=== PATIENT | male | born 2000 | race African-American/Black ===

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

== ENCOUNTER 2022-12-11 09:26 | Emergency (ER) | payer OTHER ==
--- OUTSIDE RECORDS SUMMARY | 2022-12-11 09:31 | XMS REPORT | Continuity of Care Document ---
:2000 Author Organization [facility] t Address [address] [facility] [address] [place] [address] Care Team Providers Name Role Phone RAMEZ DOWNS Primary Care Physician Unavailable Nurse, Octav[facility] Attending Clinician Unavailable Unknown, Attending Attending Clinician Unavailable GARRETT ARDON Attending Clinician Unavailable Garrett Ardon MD Attending Clinician Doctor Unassigned, [place] Attending Clinician Unavailable Margaret Galdamez Attending Clinician MARGARET HAGAN Attending Clinician Unavailable Radiology Attending Clinician Unavailable RADIOLOGY Attending Clinician Unavailable Payers Payer Name Policy Type Policy Number Effective Date Expiration Date S ource Problems Condition Condition Condition Status Onset Resolution Last Treating Co mments Source Name Details Category Date Date Treatment Clinician Date Right knee Right knee Disease Active 2014-08 U nivers pain pain 1- ity of 00:00: [place] [address] [facility] [place] Right knee Right knee Disease Active 2014-08 U nivers pain pain 1 ity of 00:00: [address] Migraines Migraines Disease Active Uni vers 04-12 ity of 00:00: [address] Allergies, Adverse Reactions, Alerts Allergy Allergy Status Severity Reaction(s) Onset Inactive Treating Comm ents Source Name Type Date Date Clinician NO KNOWN Drug Active Univers ALLERGIE Class ity of [facility] Social History Social Habit Start Date Stop Date Quantity Comments Source Exposure to 2022-07-21 2022-07-31 Not sure [facility] SARS-CoV-2 00:00:00 10:45:00 [facility] (event) [place] Tobacco use and 2022-07-25 2022-07-25 Smokeless tobacco Un iversity of exposure 00:00:00 00:00:00 non-user [facility] Tobacco Comment 2022-07-25 2022-07-25 Minor Universit y of 00:00:00 00:00:00 [facility] Sex Assigned At [birth year] Universit y of 00:00:00 00:00:00 [facility] Smoking Status Start Date Stop Date Source Never smoked tobacco [facility] Medications Ordered Filled Start Stop Current Ordering Indication Dosage Frequency Signature Comments Components Source Medication Medication Date Date Medication? Clinician (SIG) Name Name IBUPROFEN Yes Take by [employer] [facility] ORAL 5-02 mouth. ity of 14:04: [address] IBUPROFEN Yes Take by Unive rs ORAL 5-02 mouth. ity of 14:04: [address] IBUPROFEN Yes Take by Unive rs ORAL 5-02 mouth. ity of 14:04: [address] IBUPROFEN Yes Take by Unive rs ORAL 5-02 mouth. ity of 14:04: [address] IBUPROFEN Yes Take by Unive rs ORAL 5-02 mouth. ity of 14:04: [address] albuterol Yes Univers (PROVENTIL) - ity of 2.5 mg /3 00:00: [place] mL (0.083 00 Medical %) Branch nebulizer solution albuterol Yes Univers (PROVENTIL) 9 ity of 2.5 mg /3 00:00: [place] mL (0.083 00 Medical %) Branch nebulizer solution albuterol Yes Univers (PROVENTIL) 917 ity of 2.5 mg /3 00:00: [place] mL (0.083 00 Medical %) Branch nebulizer solution albuterol Yes Univers (PROVENTIL) 917 ity of 2.5 mg /3 00:00: [place] mL (0.083 00 Medical %) Branch nebulizer solution albuterol Yes Univers (PROVENTIL) 9-17 ity of 2.5 mg /3 00:00: [place] mL (0.083 00 Medical %) Branch nebulizer solution rizatriptan Yes [id number] 10mg Take 1 Tab Univers (MAXALT) 10 8-31 by mouth ity of mg tablet 00:00: as needed Kevin as 00 for Medical Migraine. Branch May repeat in 2 hours if needed amitriptyli Yes [id number] 10mg Take 1 Tab Univers ne (ELAVIL) 8-31 by mouth ity of 10 mg 00:00: at [place] tablet 00 bedtime. Medical Branch rizatriptan Yes [id number] 10mg Take 1 Tab Univers (MAXALT) 10 8-31 by mouth ity of mg tablet 00:00: as needed Kevin as 00 for Medical Migraine. Branch May repeat in 2 hours if needed amitriptyli Yes [id number] 10mg Take 1 Tab Univers ne (ELAVIL) 8-31 by mouth ity of 10 mg 00:00: at [place] tablet 00 bedtime. Medical Branch rizatriptan Yes [id number] 10mg Take 1 Tab Univers (MAXALT) 10 8-31 by mouth ity of mg tablet 00:00: as needed Kevin as 00 for Medical Migraine. Branch May repeat in 2 hours if needed amitriptyli Yes [id number] 10mg Take 1 Tab Univers ne (ELAVIL) 8-31 by mouth ity of 10 mg 00:00: at [place] tablet 00 bedtime. Medical Branch rizatriptan Yes [id number] 10mg Take 1 Tab Univers (MAXALT) 10 8-31 by mouth ity of mg tablet 00:00: as needed Kevin as 00 for Medical Migraine. Branch May repeat in 2 hours if needed amitriptyli Yes [id number] 10mg Take 1 Tab Univers ne (ELAVIL) 8-31 by mouth ity of 10 mg 00:00: at [place] tablet 00 bedtime. Medical Branch rizatriptan Yes [id number] 10mg Take 1 Tab Univers (MAXALT) 10 8-31 by mouth ity of mg tablet 00:00: as needed Kevin as 00 for Medical Migraine. Branch May repeat in 2 hours if needed amitriptyli 2015-0 Yes [id number] 10mg Take 1 Tab Univers ne (ELAVIL) 8-31 by mouth ity of 10 mg 00:00: at [facility] 00 bedtime. Medical [place] Immunizations Ordered Filled Immunization Date Status Comments [facility] e Immunization Name Name TDAP 2022-07-25 Completed University 00:00:00 [facility] TDAP 2022-07-25 Completed University 00:00:00 [facility] DTAP 2005-05-18 Completed University 00:00:00 [facility] HEPATITIS A 2005-05-18 Completed [facility] 00:00:00 [facility] Vital Signs Vital Name Observation Time Observation Value Comments Source Systolic blood 2022-07-31 16:58:00 113 mm[Hg] Univer sity of pressure [facility] Diastolic blood 2022-07-31 16:58:00 78 mm[Hg] Unive rsity of [facility] Heart rate 2022-07-31 16:58:00 80 /min [facility] Body temperature 2022-07-31 16:58:00 36.67 Adrianna [facility] Respiratory rate 2022-07-31 16:58:00 16 /min [facility] Body height 2022-07-31 16:58:00 185.4 cm [facility] Body weight 2022-07-31 16:58:00 61.689 kg [facility] BMI 2022-07-31 16:58:00 17.94 kg/m2 [facility] Oxygen saturation in 2022-07-31 16:58:00 98 /min [facility] Arterial blood by [facility] Pulse oximetry Branch Systolic blood 2022-07-25 21:36:00 126 mm[Hg] Univer sity of pressure [facility] Diastolic blood 2022-07-25 21:36:00 83 mm[Hg] Unive rsity of [facility] Heart rate 2022-07-25 21:36:00 70 /min [facility] Body temperature 2022-07-25 21:36:00 36.78 [facility]anna [facility] rate 2022-07-25 21:36:00 16 /min [facility] Body height 2022-07-25 21:36:00 185.4 cm [facility] Body weight 2022-07-25 21:36:00 63.64 kg [facility] BMI 2022-07-25 21:36:00 18.51 kg/m2 [facility] Oxygen saturation in 2022-07-25 21:36:00 98 /min [facility] Arterial blood by [facility] Pulse oximetry Branch Systolic blood 2021-05-31 19:06:00 101 mm[Hg] Univer sity of [facility] Diastolic blood 2021-05-31 19:06:00 59 mm[facility]Hg[facility] 2021-05-31 19:06:00 64.156 kg [facility] Procedures Procedure Date / Time Performed Performing Clinician Sour e TDAP VACCINE, >11 YRS, 2022-07-25 21:41:01 Garrett Ardon [facility] ASSIGNMENT OF BENEFITS 2022-07-25 21:22:38 Doctor Unassigned, No [facility] Encounters Start End Encounter Admission Attending Care Care Encounter Source Date/Time Date/Time Type Type Clinicians Facility Department ID 2022-07-31 2022-07-31 Nurse NurseOctaviano [facility] [id number] [facility] 11:00:00 11:20:00 Visit Unknown, Attending [facility] [id number] [facility] [id number] Kevin as DELTA?BLEA [id number] [address] MEDICAL OFFICE BUILDING 2022-07-31 2022-07-31 Outpatient Eufemia ARDON [facility] [id number] Univers 11:00:00 11:00:00 [facility] 2022-07-25 2022-07-25 Outpatient Eufemia ARDON [facility] [id number] Univers 15:20:00 16:04:46 GARRETT [facility] 2022-07-25 2022-07-25 Urgent Garrett Ardon [facility] [id number] Univers 15:20:00 16:04:46 Care Unknown, Attending HEALTH [id number] ity of [place] [id number] Kevin as DELTA?BLEA [phone] Ne chaz [address] [address] [place] MEDICAL OFFICE [facility] 2022-07-25 2022-07-25 Orders Doctor ANGELA [id number] Univers 00:00:00 00:00:00 Only Unassigned, OMKAR [id number] ity of [place] [facility] [id number] Kevin as [phone] [facility] [address] [place] 2022-07-25 2022-07-25 Costa Ardon [facility] [id number] Univers 00:00:00 00:00:00 [facility] [id number] [facility] y of [place] [id number] Kevin as DELTA?BLEA [id number] [facility] [address] [facility] OFFICE [facility] 2021-05-31 2021-05-31 [facility] 1.2.840.114 [id number] Univers 13:55:56 14:25:56 Visit [facility] [id number] it y of [place] [id number] Kevin as Delta?Blea [id number] [facility] [address] [facility] Office [facility] 2021-05-31 2021-05-31 Outpatient R DANYA [facility] [id number] Univers 14:15:00 14:15:00 MARGARET ity of [facility] 2021-05-26 2021-05-26 Hospital Radiology [facility] [id number] Univers 17:00:00 23:59:00 Encounter [place] [id number] ity of [id number] [place] [id number] [facility] 807 [place] 2021-05-26 2021-05-26 Outpatient R RADIOLOGY [facility] [id number] Univers 00:00:00 00:00:00 ity of [facility] 2021-05-26 2021-05-26 Orders Doctor ANGELA [id number] Univers 00:00:00 00:00:00 Only Unassigned, OMKAR [id number] ity of [place] [facility] [id number] Kevin as [id number] [facility] 009 Branch Results This patient has no known results.
[2022-12-11 10:11] LABS: Urine Bacteria None Seen /HPF (<20); Urine Bilirubin NEGATIVE (Negative); Urine Blood Negative (Negative); Urine Clarity Clear (Clear); Urine Color Light-Yellow (Yellow); Urine Glucose NEGATIVE (Negative); Urine Mucus Slight /HPF (None Seen); Urine Protein TRACE (Negative); Urine RBC <5 /HPF (None Seen); Urine Urobilinogen Normal (Normal); Urine pH 5.5 (5.0-7.0)
--- NOTE | 2022-12-11 11:58 | RAD REPORT ---
EXAM DESCRIPTION: US - Scrotum Testicles - 12/11/2022 11:51 am CLINICAL HISTORY: PAIN COMPARISON: Hip Bilateral With Pelvis dated 05/18/2017 FINDINGS: The right testicle measures 3.2 x 2.4 x 2.3 cm with volume of 9.8 cc. No intratesticular m asses or evidence of testicular torsion. The left testicle measures 3.7 x 2.7 x 1.9 cm with volume of 10.1 cc .. No intratesticular masses or evidence of testicular torsion. Both epididymides are normal in size and appearance. No pathologic fluid collections. IMPRESSION: Bilateral testicular blood flow is present. No acute findings.
--- NOTE | 2022-12-11 12:07 | EDPHYS ---
Physician Documentation [facility] Name: Dae Watters Jr Age: 22 yrs Sex: Male : 2000 Arrival Date: 12/11/2022 Time: 09:26 Bed 5 Private MD: ED Physician Agapito Haque HPI: 12/11 10:23 This 22 yrs old Black Male presents to ER via Ambulatory with complaints of STD kb Exposure. 10:23 The patient presents with scrotal pain, irritation that is intermittent. Onset: The kb symptoms/episode began/occurred this morning. Modifying factors: The symptoms are alleviated by nothing, the symptoms are aggravated by nothing. Associated signs and symptoms: The patient has no apparent associated signs or symptoms. Severity of symptoms: At their worst the symptoms were mild, in the emergency department the symptoms have resolved. The patient has not experienced similar symptoms in the past. The patient has not recently seen a physician. Historical: - Allergies: 09:50 No Known Drug Allergies; ll1 - PMHx: 09:50 Asthma; ll1 - PSHx: 09:50 Appendectomy; ll1 - Immunization history:: Adult Immunizations up to date, Client reports receiving the German \T\ German single-dose vaccine. - Social history:: Smoking status: Reported history of juuling and/or vaping. ROS: 10:22 Constitutional: Negative for fever, chills, and weight loss. kb 10:22 : Positive for intermittent irritation to testicles. 10:22 All other systems are negative. Exam: 10:22 Constitutional: This is a well developed, well nourished patient who is awake, alert, kb and in no acute distress. Head/Face: Normocephalic, atraumatic. ENT: Moist Mucous membranes Cardiovascular: Regular rate and rhythm with a normal S1 and S2. No gallops, murmurs, or rubs. No pulse deficits. Respiratory: Respirations even and unlabored. No increased work of breathing. Talking in full sentences Abdomen/GI: Soft, non-tender. No distention Male : Normal genitalia with no discharge or lesions. Skin: Warm, dry with normal turgor. Normal color. MS/ Extremity: Pulses equal, no cyanosis. Neurovascular intact. Full, normal range of motion. Neuro: Awake and alert, GCS 15, oriented to person, place, time, and situation. Moves all extremities. Normal gait. Vital Signs: 09:51 BP 122 / 73; Pulse 92; Resp 16; Temp 98.3; Pulse Ox 100% ; Weight 63.5 kg; Height 6 ft. ll1 1 in. ; Pain 0/10; 11:49 BP 121 / 64; Pulse 55; Resp 16; Pulse Ox 98% on R/A; Pain 0/10; cm9 12:23 BP 118 / 66; Pulse 61; Resp 16; Pulse Ox 99% on R/A; Pain 0/10; ld1 09:51 Body Mass Index 18.47 (63.50 kg, 185.42 cm) ll1 09:51 Pain Scale: Adult ll1 11:49 Pain Scale: Adult cm9 12:23 Pain Scale: Adult ld1 MDM: 09:51 Patient medically screened. kb 10:23 Data reviewed: vital signs, nurses notes. kb 10:23 Differential diagnosis: UTI, torsion, cellulitis, abscess. kb 12:06 Counseling: I had a detailed discussion with the patient and/or guardian regarding: the kb historical points, exam findings, and any diagnostic results supporting the discharge/admit diagnosis, lab results, radiology results, the need for outpatient follow up, a family practitioner, to return to the emergency department if symptoms worsen or persist or if there are any questions or concerns that arise at home. 12/11 09:53 Order name: Urinalysis w/ reflexes; Complete Time: 10:11 kb 12/11 10:15 Order name: GC (Dieudonne/Chl) Probe URINE EDMS 12/11 10:16 Order name: US Scrotum Testicles; Complete Time: 12:05 kb Administered Medications: No medications were administered Disposition: 12:30 Co-signature as Attending Physician, Agapito Haque MD I reviewed the patient's care rn provided by the Advanced Practice Provider and agree with the diagnosis and treatment plan. Disposition Summary: 12/11/22 12:06 Discharge Ordered Location: Home Condition: Stable Diagnosis - Testicular pain, unspecified kb Followup: kb - With: Emergency Department - When: As needed - Reason: Worsening of condition Followup: kb - With: Private Physician - When: 2 - 3 days - Reason: Recheck today's complaints, Continuance of care, Re-evaluation by your physician Discharge Instructions: - Discharge Summary Sheet kb - Testicular Self-Exam, [id number] kb Forms: - Medication Reconciliation Form kb - Thank You Letter kb - Antibiotic Education kb - Prescription Opioid Use kb Signatures: Dispatcher [employer] Laisha Guerrero FNP-C FNP-Agapito Ozuna MD MD rn Kari Golden RN RN ll1
--- NOTE | 2022-12-11 12:07 | ER ---
Nurse's Notes [facility] Name: Dae Watters Jr Age: 22 yrs Sex: Male : 2000 Arrival Date: 12/11/2022 Time: 09:26 Bed 5 Private MD: Diagnosis: Testicular pain, unspecified Presentation: 12/11 09:51 Chief complaint: Patient states: Penile irritation started today. No drainage. No ll1 dysuria. + sexually active. Coronavirus screen: Vaccine status: Patient reports receiving the 1st dose of the Covid vaccine. Client denies travel out of the [place] in the last 14 days. At this time, the client does not indicate any symptoms associated with coronavirus-19. Ebola Screen: Patient denies travel to an Ebola-affected area in the 21 days before illness onset. Initial Sepsis Screen: Does the patient meet any 2 criteria? No. Patient's initial sepsis screen is negative. Does the patient have a suspected source of infection? No. Patient's initial sepsis screen is negative. Risk Assessment: Do you want to hurt yourself or someone else? Patient reports no desire to harm self or others. Onset of symptoms was December 11, 2022. 09:51 Method Of Arrival: Ambulatory ll1 09:51 Acuity: DANIELA 4 ll1 Historical: - Allergies: 09:50 No Known Drug Allergies; ll1 - PMHx: 09:50 Asthma; ll1 - PSHx: 09:50 Appendectomy; ll1 - Immunization history:: Adult Immunizations up to date, Client reports receiving the German \T\ German single-dose vaccine. - Social history:: Smoking status: Reported history of juuling and/or vaping. Screenin:04 [facility] ED Fall Risk Assessment (Adult) History of falling in the last 3 months, cm9 including since admission No falls in past 3 months (0 pts) Confusion or Disorientation No (0 pts) Intoxicated or Sedated No (0 pts) Impaired Gait No (0 pts) Mobility Assist Device Used No (0 pt) Altered Elimination No (0 pt) Score/Fall Risk Level 0 - 2 = Low Risk Maintained a safe environment, Educated pt \T\ family on fall prevention, incl call for assistance when getting out of bed, Assessed \T\ reinforced patient's understanding of fall precautions, Hourly rounding (assess needs \T\ fall precautionary measures) done. Abuse screen: Denies threats or abuse. Nutritional screening: No deficits noted. Tuberculosis screening: No symptoms or risk factors identified. Assessment: 10:04 General: Appears in no apparent distress. Behavior is calm, cooperative, appropriate cm9 for age. Pain: Complains of pain in abdomen and pelvis Pain currently is 2 out of 10 on a pain scale. Neuro: Level of Consciousness is awake, alert, obeys commands, Oriented to person, place, time, situation. Cardiovascular: Capillary refill < 3 seconds Patient's skin is warm and dry. Respiratory: Airway is patent Respiratory effort is even, unlabored. GI:. : Reports burning with urination, pain. 11:49 Reassessment: Patient and/or family updated on plan of care and expected duration. Pain cm9 level reassessed. 12:23 Reassessment: Patient appears in no apparent distress at this time. No changes from ld1 previously documented assessment. Patient and/or family updated on plan of care and expected duration. Pain level reassessed. Patient is alert, oriented x 3, equal unlabored respirations, skin warm/dry/pink. Vital Signs: 09:51 BP 122 / 73; Pulse 92; Resp 16; Temp 98.3; Pulse Ox 100% ; Weight 63.5 kg; Height 6 ft. ll1 1 in. ; Pain 0/10; 11:49 BP 121 / 64; Pulse 55; Resp 16; Pulse Ox 98% on R/A; Pain 0/10; cm9 12:23 BP 118 / 66; Pulse 61; Resp 16; Pulse Ox 99% on R/A; Pain 0/10; ld1 09:51 Body Mass Index 18.47 (63.50 kg, 185.42 cm) ll1 09:51 Pain Scale: Adult ll1 11:49 Pain Scale: Adult cm9 12:23 Pain Scale: Adult ld1 ED Course: 09:37 Patient arrived in ED. mr 09:51 [facility]isha Weaver [facility]C [facility] kb 09:51 Agapito Haque MD is Attending Physician. kb 09:52 Triage completed. ll1 09:54 Guillermina Cho, RN is Primary Nurse. cm9 10:04 Urinalysis w/ reflexes Sent. cm9 10:04 No provider procedures requiring assistance completed. Patient did not have IV access cm9 during this emergency room visit. 10:04 Patient has correct armband on for positive identification. Bed in low position. Call cm9 light in reach. Side rails up X 1. 10:30 GC (Dieudonne/Chl) Probe URINE Sent. cm9 11:14 Patient taken to ultrasound. cm9 11:53 US Scrotum Testicles In Process Unspecified. EDMS 12:24 Arm band placed on right wrist. ld1 Administered Medications: No medications were administered Medication: 10:04 VIS not applicable for this client. cm9 Outcome: 12:06 Discharge ordered by . kb 12:23 Discharged to home ambulatory. ld1 12:23 Condition: stable 12:23 Discharge instructions given to patient, Instructed on discharge instructions, follow up and referral plans. Demonstrated understanding of instructions, follow-up care. 12:24 Patient left the ED. ld1 Signatures: Dispatcher [employer] EDMS Laisha Weaver, TRUCK CHAUFFEUR-C TRUCK CHAUFFEUR-Ckb Patsy Fournier mr Kari Golden, RN RN ll1 Charu Browning, MARVEL RN ld1 Guillermina Cho, MARVEL RN cm9
[2022-12-11 12:28] VITALS: TEMP 98.3
[2022-12-11 12:31] VITALS: BP 118/66; O2SAT 99
[2022-12-13 23:51] LABS: C.trachomatis RNA,TMA Not Detected (Not Detected)
== END 2022-12-11 12:24 | disposition home or self-care (01) ==
LOC: ER 09:26
DX: N50.812 Left testicular pain (principal); N50.811 Right testicular pain
CPT/HCPCS: 76870; 81001; 87490; 87590; 99284

== ENCOUNTER 2023-04-03 18:16 | Emergency (ER) | payer OTHER ==
--- OUTSIDE RECORDS SUMMARY | 2023-04-03 18:19 | XMS REPORT | Continuity of Care Document ---
:2000 Author Organization [facility] t Address [address] [facility] [address] [place] [address] Care Team Providers Name Role Phone RAMEZ DOWNS Primary Care Physician Unavailable Nurse, Octav[facility] Attending Clinician Unavailable Unknown, Attending Attending Clinician Unavailable GARRETT ARDON Attending Clinician Unavailable Garrett Ardon MD Attending Clinician Doctor Unassigned, [place] Attending Clinician Unavailable Margaret Galdamez Attending Clinician [...] nivers pain pain 1- ity of 00:00: [place] [address] Medical [place] Right knee Right knee Disease Active 2014-08 U nivers pain pain 1 ity of 00:00: [address] Migraines Migraines Disease Active Uni vers 04-12 ity of 00:00: [address] Allergies, Adverse Reactions, Alerts Allergy Allergy Status Severity Reaction(s) Onset Inactive Treating Comm ents Source Name Type Date Date Clinician NO KNOWN Drug Active Univers ALLERGIE Class ity of [facility] Social History Social Habit Start Date Stop Date Quantity Comments Source Exposure to 2022-07-21 2022-07-31 Not sure [facility] SARS-CoV-2 00:00:00 10:45:00 [facility] (event) [place] Tobacco use and 2022-07-25 2022-07-25 Smokeless tobacco Un iversity of exposure 00:00:00 00:00:00 non-user [facility] Tobacco Comment 2022-07-25 2022-07-25 Minor Universit y of 00:00:00 00:00:00 [facility] Sex Assigned At [birth year] Universit y of 00:00:00 00:00:00 [facility] Smoking Status Start Date Stop Date Source Never smoked tobacco [facility] Medications Ordered Filled Start Stop Current Ordering Indication Dosage Frequency Signature Comments Components Source Medication Medication Date Date Medication? Clinician (SIG) Name Name IBUPROFEN Yes Take by WO [facility] ORAL 5-02 mouth. ity of 14:04: [address] IBUPROFEN Yes Take by Unive rs ORAL 5-02 mouth. ity of 14:04: [address] IBUPROFEN Yes Take by Unive rs ORAL 5-02 mouth. ity of 14:04: [address] IBUPROFEN Yes Take by Unive rs ORAL 5-02 mouth. ity of 14:04: [address] IBUPROFEN Yes Take by Unive rs ORAL 5-02 mouth. ity of 14:04: [address] albuterol Yes Univers (PROVENTIL) - ity [...] Medical %) Branch nebulizer solution rizatriptan Yes [id number] 10mg Take 1 Tab Univers (MAXALT) 10 8-31 by mouth ity of mg tablet 00:00: as needed Kevin as 00 for Medical Migraine. Branch May repeat in 2 hours if needed amitriptyli Yes [id number] 10mg Take 1 Tab Univers ne (ELAVIL) 8-31 by mouth ity of 10 mg 00:00: at [place] tablet 00 bedtime. Medical Branch rizatriptan Yes [id number] 10mg Take 1 Tab Univers (MAXALT) 10 8-31 by mouth ity of mg tablet 00:00: as needed Kevin as 00 for Medical Migraine. Branch May repeat in 2 hours if needed amitriptyli Yes [id number] 10mg Take 1 Tab Univers ne (ELAVIL) 8-31 by mouth ity of 10 mg 00:00: at [place] tablet 00 bedtime. Medical Branch rizatriptan Yes [id number] 10mg Take 1 Tab Univers (MAXALT) 10 8-31 by mouth ity of mg tablet 00:00: as needed Kevin as 00 for Medical Migraine. Branch May repeat in 2 hours if needed amitriptyli Yes [id number] 10mg Take 1 Tab Univers ne (ELAVIL) 8-31 by mouth ity of 10 mg 00:00: at [place] tablet 00 bedtime. Medical Branch rizatriptan Yes [id number] 10mg Take 1 Tab Univers (MAXALT) 10 8-31 by mouth ity of mg tablet 00:00: as needed Kevin as 00 for Medical Migraine. Branch May repeat in 2 hours if needed amitriptyli Yes [id number] 10mg Take 1 Tab Univers ne (ELAVIL) 8-31 by mouth ity of 10 mg 00:00: at [place] tablet 00 bedtime. Medical Branch rizatriptan Yes [id number] 10mg Take 1 Tab Univers (MAXALT) 10 8-31 by mouth ity of mg tablet 00:00: as needed Kevin as 00 for Medical Migraine. Branch May repeat in 2 hours if needed amitriptyli 2015-0 Yes [id number] 10mg Take 1 Tab Univers ne (ELAVIL) 8-31 by mouth ity of 10 mg 00:00: at [facility] 00 bedtime. Medical [place] Immunizations Ordered Filled Immunization Date Status Comments [facility] e Immunization Name Name TDAP 2022-07-25 Completed University 00:00:00 [facility] TDAP 2022-07-25 Completed University 00:00:00 [facility] DTAP 2005-05-18 Completed University 00:00:00 [facility] HEPATITIS A 2005-05-18 Completed [facility] 00:00:00 [facility] Vital Signs Vital Name Observation Time Observation Value Comments Source Systolic blood 2022-07-31 16:58:00 113 mm[Hg] Univer sity of pressure [facility] Diastolic blood 2022-07-31 16:58:00 78 mm[Hg] Unive rsity of [facility] Heart rate 2022-07-31 16:58:00 80 /min [facility] Body temperature 2022-07-31 16:58:00 36.67 Adrianna [facility] Respiratory rate 2022-07-31 16:58:00 16 /min [facility] Body height 2022-07-31 16:58:00 185.4 cm [facility] Body weight 2022-07-31 16:58:00 61.689 kg [facility] BMI 2022-07-31 16:58:00 17.94 kg/m2 [facility] Oxygen saturation in 2022-07-31 16:58:00 98 /min [facility] Arterial blood by [facility] Pulse oximetry Branch Systolic blood 2022-07-25 21:36:00 126 mm[Hg] Univer sity of pressure [facility] Diastolic blood 2022-07-25 21:36:00 83 mm[Hg] Unive rsity of [facility] Heart rate 2022-07-25 21:36:00 70 /min [facility] Body temperature 2022-07-25 21:36:00 36.78 Adrianna [facility] Respiratory rate 2022-07-25 21:36:00 16 /min [facility] Body height 2022-07-25 21:36:00 185.4 cm [facility] Body weight 2022-07-25 21:36:00 63.64 kg [facility] BMI 2022-07-25 21:36:00 18.51 kg/m2 [facility] Oxygen saturation in 2022-07-25 21:36:00 98 /min [facility] Arterial blood by [facility] Pulse oximetry Branch Systolic blood 2021-05-31 19:06:00 101 mm[Hg] Univer sity of [facility] Diastolic blood 2021-05-31 19:06:00 59 [facility]Hg[facility] 2021-05-31 19:06:00 64.156 kg [facility] Procedures Procedure Date / Time Performed Performing Clinician Sour e TDAP VACCINE, >11 YRS, 2022-07-25 21:41:01 Garrett Ardon [facility] ASSIGNMENT OF BENEFITS 2022-07-25 21:22:38 Doctor Unassigned, No [facility] Encounters Start End Encounter Admission Attending Care Care Encounter Source Date/Time Date/Time Type Type Clinicians Facility Department ID 2022-07-31 2022-07-31 Nurse NurseOctaviano [facility] [id number] [facility] 11:00:00 11:20:00 Visit Unknown, Attending [facility] [id number] [facility] [id number] Kevin as DELTA?BLEA [id number] [address] MEDICAL OFFICE BUILDING 2022-07-31 2022-07-31 Outpatient Eufemia ARDON [facility] [id number] Univers 11:00:00 11:00:00 [facility] 2022-07-25 2022-07-25 Outpatient Eufemia ARDON [facility] [id number] Univers 15:20:00 16:04:46 GARRETT [facility] 2022-07-25 2022-07-25 Urgent Garrett Ardon [facility] [id number] Univers 15:20:00 16:04:46 Care Unknown, Attending HEALTH [id number] ity of [place] [id number] Kevin as DELTA?BLEA [id number] Ri chaz [place] [address] [place] MEDICAL OFFICE [facility] 2022-07-25 2022-07-25 Orders Doctor ANGELA [id number] Univers 00:00:00 00:00:00 Only Unassigned, OMKAR [id number] ity of [place] [facility] [id number] Kevin as [phone] [facility] [address] [place] 2022-07-25 2022-07-25 Costa Ardon [facility] [id number] Univers 00:00:00 00:00:00 ([facility] [id number] it y of [place] [id number] Kevin as DELTA?BLEA [phone] [facility] [address] [facility] OFFICE [facility] 2021-05-31 2021-05-31 [facility] [id number] Univers 13:55:56 14:25:56 Visit [facility] [id number] it y of [place] [id number] Kevin as Delta?Blea [id number] [facility] [address] [facility] Office [facility] 2021-05-31 2021-05-31 Outpatient R DANYA [facility] [id number] Univers 14:15:00 14:15:00 MARGARET ity of [facility] 2021-05-26 2021-05-26 Hospital Radiology [facility] [id number] Univers 17:00:00 23:59:00 Encounter [place] [id number] ity [id number] [place] [id number] [facility] [address] [place] 2021-05-26 2021-05-26 Outpatient R RADIOLOGY [facility] [id number] Univers 00:00:00 00:00:00 ity of [facility] 2021-05-26 2021-05-26 Orders Doctor ANGELA [id number] [id number] Univers 00:00:00 00:00:00 Only Unassigned, OMKAR [id number] ity of [place] [facility] [id number] Kevin as [phone] [facility] 009 Branch Results This patient has no known results.
[2023-04-03 18:58] LABS: SARS-CoV-2 Antigen Rapid Res Negative (Negative)
--- NOTE | 2023-04-03 19:05 | ER ---
Nurse's Notes [facility] Name: Dae Wat[place] Jr Age: 23 yrs Sex: Male : 2000 Arrival Date: 04/03/2023 Time: 18:16 Bed IW1 Private MD: Diagnosis: Person with feared health complaint in whom no diagnosis is made Presentation: 04/03 18:27 Chief complaint: Patient states: needs a covid-19 test requested by work due to aa5 exposure and work release. Pt denies any symptoms. Coronavirus screen: At this time, the client does not indicate any symptoms associated with coronavirus-19. Ebola Screen: Patient denies travel to an Ebola-affected area in the 21 days before illness onset. Initial Sepsis Screen: Does the patient meet any 2 criteria? HR > 90 bpm. Does the patient have a suspected source of infection? No. Patient's initial sepsis screen is negative. Risk Assessment: Do you want to hurt yourself or someone else? Patient reports no desire to harm self or others. Onset of symptoms was March 2023. 18:27 Acuity: DANIELA 4 aa5 18:27 Method Of Arrival: Ambulatory aa5 Historical: - Allergies: 18:28 No Known Allergies; aa5 - PMHx: 18:28 Asthma; aa5 - PSHx: 18:28 Appendectomy; aa5 - Immunization history:: Adult Immunizations unknown. - Social history:: Smoking status: Patient denies any tobacco usage or history of. Screenin:20 [facility] ED Fall Risk Assessment (Adult) History of falling in the last 3 months, pf1 including since admission No falls in past 3 months (0 pts) Confusion or Disorientation No (0 pts) Intoxicated or Sedated No (0 pts) Impaired Gait No (0 pts) Mobility Assist Device Used No (0 pt) Altered Elimination No (0 pt) Score/Fall Risk Level 0 - 2 = Low Risk Oriented to surroundings, Maintained a safe environment, Educated pt \T\ family on fall prevention, incl call for assistance when getting out of bed, Assessed \T\ reinforced patient's understanding of fall precautions, Provided non-skid footwear, Hourly rounding (assess needs \T\ fall precautionary measures) done, Used ambulatory aids as needed (educated on \T\ assisted with), Used gait belt as appropriate. 19:20 Abuse screen: Denies threats or abuse. Nutritional screening: No deficits noted. pf1 Tuberculosis screening: No symptoms or risk factors identified. Assessment: 19:00 General: Appears in no apparent distress. comfortable, well groomed, well developed, pf1 Behavior is calm, cooperative, appropriate for age, quiet. 19:00 Pain: Denies pain. Neuro: No deficits noted. Level of Consciousness is awake, alert, pf1 obeys commands, Oriented to person, place, time, situation. Cardiovascular: No deficits noted. Capillary refill < 3 seconds Patient's skin is warm and dry. Respiratory: No deficits noted. Airway is patent Respiratory effort is even, unlabored, Respiratory pattern is regular, symmetrical. GI: No deficits noted. No signs and/or symptoms were reported involving the gastrointestinal system. : No deficits noted. No signs and/or symptoms were reported regarding the genitourinary system. EENT: No deficits noted. No signs and/or symptoms were reported regarding the EENT system. Derm: No deficits noted. No signs and/or symptoms reported regarding the dermatologic system. Vital Signs: 18:27 BP 136 / 99; Pulse 94; Resp 16 S; Temp 97.9(TE); Pulse Ox 100% on R/A; Weight 63.5 kg aa5 (R); Height 6 ft. 1 in. (R); 18:27 Body Mass Index 18.47 (63.50 kg, 185.42 cm) aa5 ED Course: 18:20 Patient arrived in ED. kj1 18:22 [facility]isha Weaver [facility]-C [facility] kb 18:22 Wilfrid Browning DO is Attending Physician. kb 18:27 Arm band placed on. aa5 18:28 Triage completed. aa5 19:20 Patient has correct armband on for positive identification. pf1 19:20 Provided Education on: Covid-19 education. pf1 19:20 No provider procedures requiring assistance completed. Patient did not have IV access pf1 during this emergency room visit. Administered Medications: No medications were administered Medication: 19:45 VIS not applicable for this client. pf1 Outcome: 19:04 Discharge ordered by . faraz 19:45 Discharged to home ambulatory. rs5 19:45 Condition: stable 19:45 Discharge instructions given to patient, Instructed on discharge instructions, follow up and referral plans. Demonstrated understanding of instructions, follow-up care. 19:45 Patient left the ED. pf1 Signatures: Laisha Weaver FNP-C FNP-Amy Champion RN RN aa5 Jody Weaver kj1 Rachel Barton RN RN pf1 Naveen Valerio RN RN rs5 Corrections: (The following items were deleted from the chart) 04/04 05:01 04/03 20:02 Patient left the ED. rs5 pf1
--- NOTE | 2023-04-03 19:05 | EDPHYS ---
Physician Documentation [facility] Name: Dae Watters Jr Age: 23 yrs Sex: Male : 2000 Arrival Date: 04/03/2023 Time: 18:16 Bed IW1 Private MD: ED Physician Wilfrid Browning HPI: 04/03 18:32 This 23 yrs old Black Male presents to ER via Ambulatory with complaints of Flu kb Symptoms. 18:32 Pt reports someone at work tested positive for covid so his boss told him he had to get kb tested prior to returning due to exposure. Pt denies any symptoms. The patient has not experienced similar symptoms in the past. The patient has not recently seen a physician. Historical: - Allergies: 18:28 No Known Allergies; aa5 - PMHx: 18:28 Asthma; aa5 - PSHx: 18:28 Appendectomy; aa5 - Immunization history:: Adult Immunizations unknown. - Social history:: Smoking status: Patient denies any tobacco usage or history of. ROS: 18:32 Constitutional: Negative for fever, chills, and weight loss. kb 18:32 All other systems are negative. Exam: 18:32 Constitutional: This is a well developed, well nourished patient who is awake, alert, kb and in no acute distress. Head/Face: Normocephalic, atraumatic. ENT: Moist Mucous membranes Cardiovascular: Regular rate and rhythm with a normal S1 and S2. No gallops, murmurs, or rubs. No pulse deficits. Respiratory: Respirations even and unlabored. No increased work of breathing. Talking in full sentences Skin: Warm, dry with normal turgor. Normal color. MS/ Extremity: Pulses equal, no cyanosis. Neurovascular intact. Full, normal range of motion. Neuro: Awake and alert, GCS 15, oriented to person, place, time, and situation. Moves all extremities. Normal gait. Vital Signs: 18:27 BP 136 / 99; Pulse 94; Resp 16 S; Temp 97.9(TE); Pulse Ox 100% on R/A; Weight 63.5 kg aa5 (R); Height 6 ft. 1 in. (R); 18:27 Body Mass Index 18.47 (63.50 kg, 185.42 cm) aa5 MDM: 18:22 Patient medically screened. kb 18:33 Differential Diagnosis flu, covid. Data reviewed: vital signs, nurses notes. kb 19:03 Counseling: I had a detailed discussion with the patient and/or guardian regarding the kb historical points, exam findings, and any diagnostic results supporting the discharge/admit diagnosis, lab results, the need for outpatient follow up, a family practitioner, to return to the emergency department if symptoms worsen or persist or if there are any questions or concerns that arise at home. 04/03 18:30 Order name: SARS RAPID; Complete Time: 19:03 kb Administered Medications: No medications were administered Disposition: 20:26 Co-signature as Attending Physician, Wilfrid Browning DO I was immediately available on-site ms3 in the Emergency Department for consultation in the care of the patient. Disposition Summary: 04/03/23 19:04 Discharge Ordered Location: Home kb Condition: Stable kb Diagnosis - Person with feared health complaint in whom no diagnosis is made kb Followup: kb - With: Emergency Department - When: As needed - Reason: Worsening of condition Followup: kb - With: Private Physician - When: 2 - 3 days - Reason: Recheck today's complaints, Continuance of care, Re-evaluation by your physician Forms: - Medication Reconciliation Form kb - Thank You Letter kb - Antibiotic Education kb - Prescription Opioid Use kb - Patient Portal Instructions kb - Leadership Thank You Letter Signatures: Dispatcher [employer] Laisha Guerrero, HEADER OPERATOR-C HEADER OPERATOR-Amy Champion, RN RN aa5 Wilfrid Browning DO DO ms3
[2023-04-03 20:20] VITALS: BP 136/99; TEMP 97.9; O2SAT 100
== END 2023-04-03 20:02 | disposition home or self-care (01) ==
LOC: ER 18:16
DX: Z71.1 Person with feared health complaint in whom no diagnosis is made (principal); Z20.822 Contact with and (suspected) exposure to COVID-19
CPT/HCPCS: 36415; 87811; 99282

== ENCOUNTER 2023-06-17 12:17 | Emergency (ER) | payer SELFPAY ==
--- OUTSIDE RECORDS SUMMARY | 2023-06-17 12:20 | XMS REPORT | Continuity of Care Document ---
:2000 Author Organization [facility] t Address [address] [facility] [address] [place] [address] Care Team Providers Name Role Phone RAMEZ DOWNS Primary Care Physician Unavailable Nurse, Oct[facility] Attending Clinician Unavailable Unknown, Attending Attending Clinician Unavailable GARRETT ARDON Attending Clinician Unavailable Garrett Ardon MD Attending Clinician Doctor Unassigned, [place] Attending Clinician Unavailable Margaret Galdamez Attending Clinician MARAGRET HAGAN Attending Clinician Unavailable Radiology Attending Clinician Unavailable RADIOLOGY Attending Clinician Unavailable Payers Payer Name Policy Type Policy Number Effective Date Expiration Date S ource Problems Condition Condition Condition Status Onset Resolution Last Treating Co mments Source Name Details Category Date Date Treatment Clinician Date Right knee Right knee Disease Active 2014-08 U nivers pain pain 1- ity of 00:00: [place] [address] [facility] [place] Right knee Right knee Disease Active 2014-08 U nivers pain pain 1 ity of 00:00: [address] Migraines Migraines Disease Active Uni vers 04-12 ity of 00:00: [address] Allergies, Adverse Reactions, Alerts Allergy Allergy Status Severity Reaction(s) Onset Inactive Treating Comm ents Source Name Type Date Date Clinician NO KNOWN Drug Active Univers ALLERGIE Class ity of [facility] Social History Social Habit Start Date Stop Date Quantity Comments Source Exposure to 2022-07-21 2022-07-31 Not sure [facility] SARS-CoV-2 00:00:00 10:45:00 [facility] (event) [place] Tobacco use and 2022-07-25 2022-07-25 Smokeless tobacco Un iversity of exposure 00:00:00 00:00:00 non-user [facility] Tobacco Comment 2022-07-25 2022-07-25 Minor Universit y of 00:00:00 00:00:00 [facility] Sex Assigned At [birth year] Universit y of 00:00:00 00:00:00 [facility] Smoking Status Start Date Stop Date Source Never smoked tobacco [facility] Medications Ordered Filled Start Stop Current Ordering Indication Dosage Frequency Signature Comments Components Source Medication Medication Date Date Medication? Clinician (SIG) Name Name IBUPROFEN Yes Take by MZL [employer] [facility] ORAL 5-02 mouth. ity of 14:04: [address] IBUPROFEN Yes Take by Unive rs ORAL 5-02 mouth. ity of 14:04: [address] IBUPROFEN Yes Take by Unive rs ORAL 5-02 mouth. ity of 14:04: [address] IBUPROFEN Yes Take by Unive rs ORAL 5-02 mouth. ity of 14:04: [address] IBUPROFEN Yes Take by Unive rs ORAL 5-02 mouth. ity of 14:04: [address] albuterol Yes Univers (PROVENTIL) - ity [...] Medical %) Branch nebulizer solution rizatriptan Yes [id number] 10mg Take 1 Tab Univers (MAXALT) 10 8-31 by mouth ity of mg tablet 00:00: as needed Kevin as 00 for Medical Migraine. Branch May repeat in 2 hours if needed amitriptyli Yes [id number] 10mg Take 1 Tab Univers ne (ELAVIL) 8-31 by mouth ity of 10 mg 00:00: at [place] tablet 00 bedtime. Medical Branch rizatriptan Yes [id number] 10mg Take 1 Tab Univers (MAXALT) 10 8-31 by mouth ity of mg tablet 00:00: as needed Kevin as 00 for Medical Migraine. Branch May repeat in 2 hours if needed amitriptyli Yes [id number] 10mg Take 1 Tab Univers ne (ELAVIL) 8-31 by mouth ity of 10 mg 00:00: at [place] tablet 00 bedtime. Medical Branch rizatriptan Yes [id number] 10mg Take 1 Tab Univers (MAXALT) 10 8-31 by mouth ity of mg tablet 00:00: as needed Kevin as 00 for Medical Migraine. Branch May repeat in 2 hours if needed amitriptyli Yes [id number] 10mg Take 1 Tab Univers ne (ELAVIL) 8-31 by mouth ity of 10 mg 00:00: at [place] tablet 00 bedtime. Medical Branch rizatriptan Yes [id number] 10mg Take 1 Tab Univers (MAXALT) 10 8-31 by mouth ity of mg tablet 00:00: as needed Kevin as 00 for Medical Migraine. Branch May repeat in 2 hours if needed amitriptyli Yes [id number] 10mg Take 1 Tab Univers ne (ELAVIL) 8-31 by mouth ity of 10 mg 00:00: at [place] tablet 00 bedtime. Medical Branch rizatriptan Yes [id number] 10mg Take 1 Tab Univers (MAXALT) 10 8-31 by mouth ity of mg tablet 00:00: as needed Kevin as 00 for Medical Migraine. Branch May repeat in 2 hours if needed amitriptyli 2015-0 Yes [id number] 10mg Take 1 Tab Univers ne (ELAVIL) 8-31 by mouth ity of 10 mg 00:00: at [place] tablet 00 bedtime. Medical Branch Vital Signs Vital Name Observation Time Observation Value Comments Source Systolic blood 2022-07-31 16:58:00 113 mm[Hg] Univer sity of pressure [facility] Diastolic blood 2022-07-31 16:58:00 78 mm[Hg] Unive rsity of pressure [facility] Heart rate 2022-07-31 16:58:00 80 /min Universi ty of [facility] Body temperature 2022-07-31 16:58:00 36.67 Adrianna Univ ersity [facility] Respiratory rate 2022-07-31 16:58:00 16 /min Univ ersity of [facility] Body height 2022-07-31 16:58:00 185.4 cm Universi ty of [facility] Body weight 2022-07-31 16:58:00 61.689 kg Universi ty of [facility] BMI 2022-07-31 16:58:00 17.94 kg/m2 Universi ty of [facility] Oxygen saturation in 2022-07-31 16:58:00 98 /min [facility] Arterial blood by [facility] Pulse oximetry Branch Systolic blood 2022-07-25 21:36:00 126 mm[Hg] Univer sity of [facility] Diastolic blood 2022-07-25 21:36:00 83 mm[Hg] Unive rsity of [facility] Heart rate 2022-07-25 21:36:00 70 /min Universi ty of [facility] Body temperature 2022-07-25 21:36:00 36.78 Adrianna Univ ersity [facility] Respiratory rate 2022-07-25 21:36:00 16 /min Univ ersity [facility] Body height 2022-07-25 21:36:00 185.4 cm Universi ty of [facility] Body weight 2022-07-25 21:36:00 63.64 kg Universi ty of [facility] BMI 2022-07-25 21:36:00 18.51 kg/m2 Universi ty of [facility] Oxygen saturation in 2022-07-25 21:36:00 98 /min University Arterial blood by [facility] Pulse oximetry Branch Systolic blood 2021-05-31 19:06:00 101 mm[Hg] Univer sity of pressure [facility] Diastolic blood 2021-05-31 19:06:00 59 mm[Hg] Unive rsity of [facility] Body weight 2021-05-31 19:06:00 64.156 kg [facility] Procedures Procedure Date / Time Performed Performing Clinician Veronica e TDAP VACCINE, >11 YRS, 2022-07-25 21:41:01 Garrett Ardon [facility] ASSIGNMENT OF BENEFITS 2022-07-25 21:22:38 Doctor Unassigned, No [facility] Encounters Start End Encounter Admission Attending Care Care Encounter Source Date/Time Date/Time Type Type Clinicians Facility Department ID 2022-07-31 2022-07-31 Nurse Nurse, Octaviano [facility] [id number] Univers 11:00:00 11:20:00 Visit Unknown, Attending [id number] [id number] Kevin as DELTA?BLEA [id number] [address] MEDICAL OFFICE BUILDING 2022-07-31 2022-07-31 [id number] Univers 11:00:00 11:00:00 GARRETT [facility] [place] [facility] 2022-07-25 2022-07-25 [facility] [id number] Univers 15:20:00 16:04:46 GARRETT [facility] [place] [facility] 2022-07-25 2022-07-25 Urgent Garrett Ardon [facility] [id number] Univers 15:20:00 16:04:46 Care Unknown, Attending [id number] [id number] Kevin as DELTA?BLEA [phone] [address] MEDICAL OFFICE BUILDING 2022-07-25 2022-07-25 Orders Doctor ANGELA [id number] Univers 00:00:00 00:00:00 Only Unassigned, OMKAR [id number] ity of [place] [facility] [id number] Kevin as [id number] [facility] [address] [place] 2022-07-25 2022-07-25 Costa Ardon WVJOSE M [id number] Univers 00:00:00 00:00:00 (Out) Garrett [facility] [id number] it y [facility] [id number] Kevin as DELTA?BLEA [id number] [facility] [address] [place] MEDICAL OFFICE BUILDING 2021-05-31 2021-05-[address] [facility] [id number] Univers 13:55:56 14:25:56 Visit Margaret Hewitt [facility] [id number] it y of [place] [id number] Kevin as Delta?Blea [phone] [facility] [address] [place] Medical [address] Building 2021-05-31 2021-05-31 Outpatient R DANYA [facility] [id number] Univers 14:15:00 14:15:00 MARGARET ity of [facility] 2021-05-26 2021-05-26 Hospital Radiology [facility] [id number] Univers 17:00:00 23:59:00 Encounter [place] [id number] ity of [id number] [id number] [facility] [address] [place] 2021-05-26 2021-05-26 Outpatient R RADIOLOGY [facility] [id number] Univers 00:00:00 00:00:00 ity of [facility] 2021-05-26 2021-05-26 Orders Doctor ANGELA [id number] Univers 00:00:00 00:00:00 Only Unassigned, OMKAR [id number] ity of [place] [facility] [id number] Kevin as [phone] [address] Results This patient has no known results.
[2023-06-17] MEDS ORDERED: ONDANSETRON 4 MG (ODT) TAB ONE (12:47)
[2023-06-17 13:22] LABS: SARS-CoV-2 Antigen Rapid Res Positive (Negative)
--- NOTE | 2023-06-17 13:26 | ER ---
Nurse's Notes [facility] Name: Dae Watters Jr Age: 23 yrs Sex: Male : 2000 Arrival Date: 06/17/2023 Time: 12:17 Bed IW1 Private MD: Diagnosis: Coronavirus infection, unspecified Presentation: 06/17 12:30 Chief complaint: Patient states: woke up this morning with body aches and vomiting. cm10 Coronavirus screen: Vaccine status: Patient reports receiving the 2nd dose of the covid vaccine. Client denies travel out of the [place] in the last 14 days. Ebola Screen: Patient denies travel to an Ebola-affected area in the 21 days before illness onset. No symptoms or risks identified at this time. Initial Sepsis Screen: Does the patient meet any 2 criteria? No. Patient's initial sepsis screen is negative. Does the patient have a suspected source of infection? No. Patient's initial sepsis screen is negative. Risk Assessment: Do you want to hurt yourself or someone else? Patient reports no desire to harm self or others. Onset of symptoms was June 17, 2023. 12:30 Method Of Arrival: Ambulatory cm10 12:30 Acuity: DANIELA 4 cm10 Triage Assessment: 13:09 General: Appears in no apparent distress. uncomfortable, Behavior is calm, cooperative. cm10 Pain: Complains of pain in body aches. EENT: No deficits noted. No signs and/or symptoms were reported regarding the EENT system. Neuro: No deficits noted. Layne Agitation-Sedation Scale (RASS): 0 - Alert and Calm Level of Consciousness is awake, alert, obeys commands, Oriented to person, place, time, situation. Cardiovascular: No deficits noted. Patient's skin is warm and dry. Respiratory: No deficits noted. Airway is patent Respiratory effort is even, unlabored, Respiratory pattern is regular, symmetrical. GI: No deficits noted. No signs and/or symptoms were reported involving the gastrointestinal system. : No deficits noted. No signs and/or symptoms were reported regarding the genitourinary system. Derm: No deficits noted. No signs and/or symptoms reported regarding the dermatologic system. Musculoskeletal: No deficits noted. No signs and/or symptoms reported regarding the musculoskeletal system. Range of motion: intact in all extremities. Historical: - Allergies: 12:31 No Known Allergies; cm10 - PMHx: 12:31 Asthma; cm10 - PSHx: 12:31 Appendectomy; cm10 - Immunization history:: Adult Immunizations unknown. - Social history:: Smoking status: Reported history of juuling and/or vaping. Screenin:09 [facility] ED Fall Risk Assessment (Adult) History of falling in the last 3 months, cm10 including since admission No falls in past 3 months (0 pts) Confusion or Disorientation No (0 pts) Intoxicated or Sedated No (0 pts) Impaired Gait No (0 pts) Mobility Assist Device Used No (0 pt) Altered Elimination No (0 pt) Score/Fall Risk Level 0 - 2 = Low Risk Oriented to surroundings, Maintained a safe environment, Hourly rounding (assess needs \T\ fall precautionary measures) done. Abuse screen: Denies threats or abuse. Denies injuries from another. Nutritional screening: No deficits noted. Tuberculosis screening: No symptoms or risk factors identified. Vital Signs: 12:30 BP 112 / 74; Pulse 112; Resp 18; Temp 98.4(O); Pulse Ox 100% ; Weight 61.23 kg (R); cm10 Height 6 ft. 1 in. (R); Pain 9/10; 12:30 Body Mass Index 17.81 (61.23 kg, 185.42 cm) cm10 12:30 Pain Scale: Adult cm10 ED Course: 12:22 Patient arrived in ED. mr 12:28 Ibis Seymournifer, GONZALO [facility] 12:28 Agapito Haque MD is Attending Physician. [facility] 12:31 Triage completed. cm10 12:31 Arm band placed on Patient placed in waiting room. cm10 12:38 SARS RAPID Sent. cm10 12:38 Flu Sent. cm10 13:10 Patient has correct armband on for positive identification. Provided Education on: ER cm10 process and procedures. . 13:10 No provider procedures requiring assistance completed. Patient did not have IV access cm10 during this emergency room visit. Administered Medications: 12:36 Drug: Ondansetron PO 4 mg PO once Route: PO; cm10 Medication: 13:09 VIS not applicable for this client. cm10 Outcome: 13:25 Discharge ordered by . [facility] 13:39 Patient left the ED. hb Signatures: Patsy Fournier, Reg Reg mr Kaila Blackwell, RN RN hb Nithya Seymour, AEROSPACE MEDICINE PHYSICIAN AEROSPACE MEDICINE PHYSICIAN jh7 Nena Méndez, RN RN cm10
--- NOTE | 2023-06-17 13:26 | EDPHYS ---
Physician Documentation [facility] Name: Dae Watters Jr Age: 23 yrs Sex: Male : 2000 Arrival Date: 06/17/2023 Time: 12:17 Bed IW1 Private MD: ED Physician Agapito Haque HPI: 06/17 12:30 This 23 yrs old Black Male presents to ER via Ambulatory with complaints of Body aches. jh7 12:30 Onset: The symptoms/episode began/occurred acutely. Associated signs and symptoms: jh7 Pertinent positives: fever, vomiting, Pertinent negatives: abdominal pain, chest pain. Historical: - Allergies: 12:31 No Known Allergies; cm10 - PMHx: 12:31 Asthma; cm10 - PSHx: 12:31 Appendectomy; cm10 - Immunization history:: Adult Immunizations unknown. - Social history:: Smoking status: Reported history of juuling and/or vaping. ROS: 12:30 Eyes: Negative for injury, pain, redness, and discharge, ENT: Negative for injury, jh7 pain, and discharge, Neck: Negative for injury, pain, and swelling, Cardiovascular: Negative for chest pain, palpitations, and edema, Respiratory: Negative for shortness of breath, cough, wheezing, and pleuritic chest pain, Back: Negative for injury and pain, MS/Extremity: Negative for injury and deformity, Skin: Negative for injury, rash, and discoloration, Neuro: Negative for headache, weakness, numbness, tingling, and seizure, 12:30 Constitutional: Positive for body aches, chills, fever, 12:30 Abdomen/GI: Positive for nausea and vomiting, Negative for diarrhea, 12:30 All other systems are negative, Exam: 12:30 Head/Face: Normocephalic, atraumatic. ENT: Nares patent. No nasal discharge, no jh7 septal abnormalities noted. Tympanic membranes are normal and external auditory canals are clear. Oropharynx with no redness, swelling, or masses, exudates, or evidence of obstruction, uvula midline. Mucous membranes moist. Neck: Trachea midline, no thyromegaly or masses palpated, and no cervical lymphadenopathy. Supple, full range of motion without nuchal rigidity, or vertebral point tenderness. No Meningismus. Cardiovascular: Regular rate and rhythm with a normal S1 and S2. No gallops, murmurs, or rubs. Normal PMI, no JVD. No pulse deficits. Respiratory: Lungs have equal breath sounds bilaterally, clear to auscultation and percussion. No rales, rhonchi or wheezes noted. No increased work of breathing, no retractions or nasal flaring. Abdomen/GI: Soft, non-tender, with normal bowel sounds. No distension or tympany. No guarding or rebound. No evidence of tenderness throughout. Skin: Warm, dry with normal turgor. Normal color with no rashes, no lesions, and no evidence of cellulitis. MS/ Extremity: Pulses equal, no cyanosis. Neurovascular intact. Full, normal range of motion. Neuro: Awake and alert, GCS 15, oriented to person, place, time, and situation. Normal gait. 12:30 Constitutional: The patient appears alert, awake, sobbing Vital Signs: 12:30 BP 112 / 74; Pulse 112; Resp 18; Temp 98.4(O); Pulse Ox 100% ; Weight 61.23 kg (R); cm10 Height 6 ft. 1 in. (R); Pain 9/10; 12:30 Body Mass Index 17.81 (61.23 kg, 185.42 cm) cm10 12:30 Pain Scale: Adult cm10 MDM: 12:28 Patient medically screened. [facility] 13:32 Differential diagnosis: viral Infection, URI, covid, flu. Data reviewed: vital signs, [facility] nurses notes. I considered the following discharge prescriptions or medication management in the emergency department Medications were administered in the Emergency Department. See MAR. Counseling: I had a detailed discussion with the patient and/or guardian regarding the historical points, exam findings, and any diagnostic results supporting the discharge/admit diagnosis, to return to the emergency department if symptoms worsen or persist or if there are any questions or concerns that arise at home. ED course: Patient left before receiving discharge paperwork. 06/17 12:33 Order name: Flu; Complete Time: 13:30 [facility] 06/17 12:33 Order name: SARS RAPID; Complete Time: 13:25 [facility] Administered Medications: 12:36 Drug: Ondansetron PO 4 mg PO once Route: PO; cm10 Disposition: 06/18 09:04 Co-signature as Attending Physician, Agapito Haque MD I reviewed the patient's care rn provided by the Advanced Practice Provider and agree with the diagnosis and treatment plan. Disposition Summary: 06/17/23 13:25 Discharge Ordered Notes: Location: Home [facility] Problem: new [facility] Symptoms: are unchanged [facility] Condition: Stable [facility] Diagnosis - Coronavirus infection, unspecified 7 Followup: [facility] - With: Private Physician - When: 2 - 3 days - Reason: Recheck today's complaints Discharge Instructions: - Discharge Summary Sheet [facility] - COVID-19 [facility] - 10 Things You Can Do to Manage Your COVID-19 Symptoms at Home - [facility] (02/25/2021) [facility] Forms: - Work release form eb - Medication Reconciliation Form [facility] - Thank You Letter [facility] - Patient Portal Instructions [facility] - Leadership Thank You Letter [facility] Signatures: Dispatcher [employer] Agapito Loredo MD MD rn Nithya Seymour, REPLENISHMENT MERCHANDISING ASSOCIATE REPLENISHMENT MERCHANDISING ASSOCIATE [facility] Nena Méndez, RN RN cm10
[2023-06-17 14:12] VITALS: BP 112/74; TEMP 98.4; O2SAT 100
== END 2023-06-17 13:39 | disposition home or self-care (01) ==
LOC: ER 12:17
DX: U07.1 COVID-19 (principal)
CPT/HCPCS: 36415; 87804; 87811; 99283; Q0162

== ENCOUNTER 2023-06-19 16:18 | Emergency (ER) | payer OTHER ==
--- OUTSIDE RECORDS SUMMARY | 2023-06-19 16:21 | XMS REPORT | Continuity of Care Document ---
:2000 Author Organization [facility] t Address [address] [facility] [address] [place] [address] Care Team Providers Name Role Phone RAMEZ DOWNS Primary Care Physician Unavailable Nurse, Octav[facility] Attending Clinician Unavailable Unknown, Attending Attending Clinician Unavailable GARRETT ARDON Attending Clinician Unavailable Garrett Ardon MD Attending Clinician Doctor Unassigned, [place] Attending Clinician Unavailable Margaret Galdamez Attending Clinician [...] nivers pain pain 1- ity of 00:00: [place] [address] [facility] [place] Right knee Right knee Disease Active 2014-08 U nivers pain pain 1- ity of 00:00: [place] 00 [facility] Migraines Migraines Disease Active Uni vers 04-12 ity of 00:00: [address] Allergies, Adverse Reactions, Alerts Allergy Allergy Status Severity Reaction(s) Onset Inactive Treating Comm ents Source Name Type Date Date Clinician NO KNOWN Drug Active Univers ALLERGIE Class ity of S [facility] Social History Social Habit Start Date Stop Date Quantity Comments Source Exposure to 2022-07-21 2022-07-31 Not sure University SARS-CoV-2 00:00:00 10:45:00 [facility] (event) [place] Tobacco use and 2022-07-25 2022-07-25 Smokeless tobacco Un iversity of exposure 00:00:00 00:00:00 non-user [facility] Tobacco Comment 2022-07-25 2022-07-25 Minor Universit y of 00:00:00 00:00:00 [facility] Sex Assigned At [birth year] Universit y of 00:00:00 00:00:00 [facility] Smoking Status Start Date Stop Date Source Never smoked tobacco [facility] Medications Ordered Filled Start Stop Current Ordering Indication Dosage Frequency Signature Comments Components Source Medication Medication Date Date Medication? Clinician (SIG) Name Name IBUPROFEN Yes Take by [employer] ORAL 5-02 mouth. ity of 14:04: [address] IBUPROFEN Yes Take by Unive rs ORAL 5-02 mouth. ity of 14:04: [address] IBUPROFEN Yes Take by Unive rs ORAL 5-02 mouth. ity of 14:04: [address] IBUPROFEN Yes Take by Unive rs ORAL 5-02 mouth. ity of 14:04: [address] IBUPROFEN Yes Take by Unive rs ORAL 5-02 mouth. ity of 14:04: [address] albuterol Yes Univers (PROVENTIL) -17 ity of 2.5 mg /3 00:00: [place] [...] Medical %) Branch nebulizer solution rizatriptan Yes [id number] 10mg Take 1 Tab Univers (MAXALT) 10 8-31 by mouth ity of mg tablet 00:00: as needed Kevin as 00 for Medical Migraine. Branch May repeat in 2 hours if needed amitriptyli Yes [id number] 10mg Take 1 Tab Univers ne (ELAVIL) 8-31 by mouth ity of 10 mg 00:00: at [place] tablet 00 bedtime. Medical Branch rizatriptan Yes [id number] 10mg Take 1 Tab Univers (MAXALT) 10 8-31 by mouth ity of mg tablet 00:00: as needed Kevin as 00 for Medical Migraine. Branch May repeat in 2 hours if needed amitriptyli Yes [id number] 10mg Take 1 Tab Univers ne (ELAVIL) 8-31 by mouth ity of 10 mg 00:00: at [place] tablet 00 bedtime. Medical Branch rizatriptan Yes [id number] 10mg Take 1 Tab Univers (MAXALT) 10 8-31 by mouth ity of mg tablet 00:00: as needed Kevin as 00 for Medical Migraine. Branch May repeat in 2 hours if needed amitriptyli Yes [id number] 10mg Take 1 Tab Univers ne (ELAVIL) 8-31 by mouth ity of 10 mg 00:00: at [place] tablet 00 bedtime. Medical Branch rizatriptan Yes [id number] 10mg Take 1 Tab Univers (MAXALT) 10 8-31 by mouth ity of mg tablet 00:00: as needed Kevin as 00 for Medical Migraine. Branch May repeat in 2 hours if needed amitriptyli Yes [id number] 10mg Take 1 Tab Univers ne (ELAVIL) 8-31 by mouth ity of 10 mg 00:00: at [place] tablet 00 bedtime. Medical Branch rizatriptan Yes [id number] 10mg Take 1 Tab Univers (MAXALT) 10 8-31 by mouth ity of mg tablet 00:00: as needed Kevin as 00 for Medical Migraine. Branch May repeat in 2 hours if needed amitriptyli 2015-0 Yes [id number] 10mg Take 1 Tab Univers ne (ELAVIL) 8-31 by mouth ity of 10 mg 00:00: at [place] tablet 00 bedtime. Medical Branch Vital Signs Vital Name Observation Time Observation Value Comments Source Systolic blood 2022-07-31 16:58:00 113 mm[Hg] Univer sity of pressure [facility] Diastolic blood 2022-07-31 16:58:00 78 mm[Hg] Unive rsity of pressure [facility] Heart rate 2022-07-31 16:58:00 80 /min Universi ty of [facility] Body temperature 2022-07-31 16:58:00 36.67 Adrianna Univ ersity [facility] Respiratory rate 2022-07-31 16:58:00 16 /min Univ ersity of [facility] Body height 2022-07-31 16:58:00 185.4 cm Universi ty of [facility] Body weight 2022-07-31 16:58:00 61.689 kg Universi ty of [facility] BMI 2022-07-31 16:58:00 17.94 kg/m2 Universi ty of [facility] Oxygen saturation in 2022-07-31 16:58:00 98 /min [facility] Arterial blood by [facility] Pulse oximetry Branch Systolic blood 2022-07-25 21:36:00 126 mm[Hg] Univer sity of [facility] Diastolic blood 2022-07-25 21:36:00 83 mm[Hg] Unive rsity of [facility] Heart rate 2022-07-25 21:36:00 70 /min Universi ty of [facility] Body temperature 2022-07-25 21:36:00 36.78 Adrianna Univ ersity [facility] Respiratory rate 2022-07-25 21:36:00 16 /min Univ ersity of [facility] Body height 2022-07-25 21:36:00 185.4 cm Universi ty of [facility] Body weight 2022-07-25 21:36:00 63.64 kg Universi ty of [facility] BMI 2022-07-25 21:36:00 18.51 kg/m2 Universi ty of [facility] Oxygen saturation in 2022-07-25 21:36:00 98 /min University Arterial blood by [facility] Pulse oximetry Branch Systolic blood 2021-05-31 19:06:00 101 mm[Hg] Chao sity of pressure [facility] Diastolic blood 2021-05-31 19:06:00 59 mm[Hg] Univcathy rsity of [facility] Body weight 2021-05-31 19:06:00 64.156 kg [facility] Procedures Procedure Date / Time Performed Performing Clinician Veronica e TDAP VACCINE, >11 YRS, 2022-07-25 21:41:01 Garrett Ardon [facility] ASSIGNMENT OF BENEFITS 2022-07-25 21:22:38 Doctor Unassigned, No [facility] Encounters Start End Encounter Admission Attending Care Care Encounter Source Date/Time Date/Time Type Type Clinicians Facility Department ID 2022-07-31 2022-07-31 Nurse Nurse, Octaviano [facility] [id number] Univers 11:00:00 11:20:00 Visit Unknown, Attending [id number] [id number] Kevin as DELTA?BLEA [phone] [address] MEDICAL OFFICE BUILDING 2022-07-31 2022-07-31 [facility] [id number] Univers 11:00:00 11:00:00 GARRETT [facility] 2022-07-25 2022-07-25 [facility] [id number] Univers 15:20:00 16:04:46 GARRETT [facility] 2022-07-25 2022-07-25 Urgent aBljeet Garrett [facility] [id number] Univers 15:20:00 16:04:46 Care Unknown, Attending [id number] [id number] Kevin as DELTA?BLEA [phone] [address] MEDICAL OFFICE BUILDING 2022-07-25 2022-07-25 Orders Doctor ANGELA [id number] Univers 00:00:00 00:00:00 Only Unassigned, OMKAR [id number] ity of [place] [facility] [id number] Kevin as [phone] [facility] [address] [place] 2022-07-25 2022-07-25 Costa Ardon NVJOSE M [id number] Univers 00:00:00 00:00:00 (Out) Garrett [facility] [id number] it y [facility] [id number] Kevin as DELTA?BLEA [phone] [facility] [address] [place] MEDICAL OFFICE BUILDING 2021-05-31 2021-05-31 [facility] [id number] Univers 13:55:56 14:25:56 Visit Margaret Hewitt [facility] [id number] it y of [place] [id number] Kevin as Delta?Blea [phone] [facility] [address] [place] [address] Building 2021-05-31 2021-05-31 Outpatient R DANYA [facility] [id number] Univers 14:15:00 14:15:00 MARGARET ity of [facility] 2021-05-26 2021-05-26 Hospital Radiology [facility] [id number] Univers 17:00:00 23:59:00 Encounter [place] [id number] ity [id number] [place] [phone] [facility] [address] [place] 2021-05-26 2021-05-26 Outpatient R RADIOLOGY [facility] [id number] Univers 00:00:00 00:00:00 ity of [facility] 2021-05-26 2021-05-26 Orders Doctor ANGELA [id number] Univers 00:00:00 00:00:00 Only Unassigned, OMKAR [id number] ity of [place] [facility] [id number] Kevin as [phone] [address] Results This patient has no known results.
--- NOTE | 2023-06-19 16:26 | EDPHYS ---
Physician Documentation [facility] Name: Dae Watters Jr Age: 23 yrs Sex: Male : 2000 Arrival Date: 06/19/2023 Time: 16:18 Bed Waiting Private MD: ED Physician James Olivo HPI: 06/19 16:26 This 23 yrs old Black Male presents to ER via Ambulatory with complaints of Flu kb Symptoms. 16:26 Patient is a 23-year-old male with a history of asthma who presents for body aches, kb malaise, fatigue, diarrhea, decreased appetite that started 2 days ago. Patient was seen here on the day of onset of symptoms but left prior to diagnostic results.. Historical: - Allergies: 16:24 No Known Allergies; cm10 - Home Meds: 16:24 None [Active]; cm10 - PMHx: 16:24 Asthma; cm10 - PSHx: 16:24 Appendectomy; cm10 - Immunization history:: Adult Immunizations unknown. - Social history:: Smoking status: Reported history of juuling and/or vaping. ROS: 16:26 Respiratory: Negative for shortness of breath, cough, wheezing, and pleuritic chest kb pain, 16:26 Constitutional: Positive for body aches, chills, fatigue, fever, malaise, 16:26 Abdomen/GI: Positive for diarrhea, 16:26 Neuro: Positive for headache, 16:26 All other systems are negative, Exam: 16:26 Constitutional: This is a well developed, well nourished patient who is awake, alert, kb and in no acute distress. Head/Face: Normocephalic, atraumatic. ENT: Moist Mucous membranes Cardiovascular: Regular rate Respiratory: Respirations even and unlabored. No increased work of breathing. Talking in full sentences Abdomen/GI: Soft, non-tender. No distention Skin: Warm, dry with normal turgor. Normal color. MS/ Extremity: Pulses equal, no cyanosis. Neurovascular intact. Full, normal range of motion. Neuro: Awake and alert, GCS 15, oriented to person, place, time, and situation. Moves all extremities. Normal gait. Vital Signs: 16:22 BP 113 / 87; Pulse 88; Resp 18; Temp 97.3; Pulse Ox 100% on R/A; Weight 61.23 kg; cm10 Height 6 ft. 1 in. ; 16:22 Body Mass Index 17.81 (61.23 kg, 185.42 cm) cm10 MDM: 16:22 Patient medically screened. kb 16:27 Differential diagnosis: Flu, COVID, URI, pneumonia, asthma exacerbation. Data reviewed: kb vital signs, nurses notes. Test considered but Not performed: Labs: Flu and COVID test considered but patient had them completed 2 days ago, COVID-positive at that time. Results printed and given to patient.. Counseling: I had a detailed discussion with the patient and/or guardian regarding the historical points, exam findings, and any diagnostic results supporting the discharge/admit diagnosis, the need for outpatient follow up, a family practitioner, to return to the emergency department if symptoms worsen or persist or if there are any questions or concerns that arise at home. Administered Medications: No medications were administered Disposition Summary: 06/19/23 16:25 Discharge Ordered Notes: Location: Home kb Condition: Stable kb Diagnosis - SARS-associated coronavirus as the cause of diseases classified elsewhere kb Followup: kb - With: Emergency Department - When: As needed - Reason: Worsening of condition Followup: kb - With: Private Physician - When: 2 - 3 days - Reason: Recheck today's complaints, Continuance of care, Re-evaluation by your physician Discharge Instructions: - Discharge Summary Sheet kb - COVID-19 kb - Viral Illness, Adult kb Forms: - Work release form kb - Medication Reconciliation Form kb - Thank You Letter kb - Antibiotic Education kb - Prescription Opioid Use kb - Patient Portal Instructions kb - Leadership Thank You Letter kb Addendum: 06/23/2023 07:55 I was immediately available for consultation during this patient's visit. I did not e c2 personally see the patient or guide the patient's care. . Signatures: Laisha Weaver FNP-C FNP-Nena Hurst, RN RN cm10 James Olivo MD MD ec2
--- NOTE | 2023-06-19 16:26 | ER ---
Nurse's Notes [facility] Name: Dae Watters Jr Age: 23 yrs Sex: Male : 2000 Arrival Date: 06/19/2023 Time: 16:18 Bed Waiting Private MD: Diagnosis: SARS-associated coronavirus as the cause of diseases classified elsewhere Presentation: 06/19 16:22 Chief complaint: Patient states: body aches, cough onset Sunday. Coronavirus screen: cm10 Vaccine status: Patient reports being unvaccinated. Client denies travel out of the [place] in the last 14 days. Ebola Screen: Patient denies travel to an Ebola-affected area in the 21 days before illness onset. No symptoms or risks identified at this time. Initial Sepsis Screen: Does the patient meet any 2 criteria? No. Patient's initial sepsis screen is negative. Does the patient have a suspected source of infection? No. Patient's initial sepsis screen is negative. Risk Assessment: Do you want to hurt yourself or someone else? Patient reports no desire to harm self or others. Onset of symptoms was June 19, 2023. 16:22 Method Of Arrival: Ambulatory cm10 16:22 Acuity: DANIELA 4 cm10 Triage Assessment: 16:24 General: Appears in no apparent distress. comfortable, Behavior is cooperative. Pain: cm10 Complains of pain in Body aches. EENT: No deficits noted. No signs and/or symptoms were reported regarding the EENT system. Neuro: No deficits noted. Layne Agitation-Sedation Scale (RASS): 0 - Alert and Calm Level of Consciousness is awake, alert, obeys commands, Oriented to person, place, time, situation. Cardiovascular: No deficits noted. Patient's skin is warm and dry. Respiratory: No deficits noted. Airway is patent Respiratory effort is even, unlabored, Respiratory pattern is regular, symmetrical, Breath sounds are clear bilaterally. GI: No deficits noted. Abdomen is flat, Reports diarrhea, nausea. : No deficits noted. No signs and/or symptoms were reported regarding the genitourinary system. Derm: No deficits noted. No signs and/or symptoms reported regarding the dermatologic system. Skin is intact, Skin is pink, warm \T\ dry. Musculoskeletal: No deficits noted. No signs and/or symptoms reported regarding the musculoskeletal system. Range of motion: intact in all extremities. Historical: - Allergies: 16:24 No Known Allergies; cm10 - Home Meds: 16:24 None [Active]; cm10 - PMHx: 16:24 Asthma; cm10 - PSHx: 16:24 Appendectomy; cm10 - Immunization history:: Adult Immunizations unknown. - Social history:: Smoking status: Reported history of juuling and/or vaping. Screenin:25 [facility] ED Fall Risk Assessment (Adult) History of falling in the last 3 months, cm10 including since admission No falls in past 3 months (0 pts) Confusion or Disorientation No (0 pts) Intoxicated or Sedated No (0 pts) Impaired Gait No (0 pts) Mobility Assist Device Used No (0 pt) Altered Elimination No (0 pt) Score/Fall Risk Level 0 - 2 = Low Risk Oriented to surroundings, Maintained a safe environment, Hourly rounding (assess needs \T\ fall precautionary measures) done. Abuse screen: Denies threats or abuse. Denies injuries from another. Nutritional screening: No deficits noted. Tuberculosis screening: No symptoms or risk factors identified. Vital Signs: 16:22 BP 113 / 87; Pulse 88; Resp 18; Temp 97.3; Pulse Ox 100% on R/A; Weight 61.23 kg; cm10 Height 6 ft. 1 in. ; 16:22 Body Mass Index 17.81 (61.23 kg, 185.42 cm) cm10 ED Course: 16:19 Patient arrived in ED. rg4 16:20 Laisha Weaver FNP-C is [facility]. 16:20 James Olivo MD is Attending Physician. kb 16:24 Triage completed. cm10 16:25 Arm band placed on Patient placed in waiting room. cm10 16:25 Patient has correct armband on for positive identification. Provided Education on: ER cm10 process and procedures. . 16:26 No provider procedures requiring assistance completed. Patient did not have IV access cm10 during this emergency room visit. Administered Medications: No medications were administered Medication: 16:25 VIS not applicable for this client. cm10 Outcome: 16:25 Discharge ordered by . kb 16:26 Discharged to home ambulatory, cm10 16:26 Condition: good 16:26 Discharge instructions given to patient, Instructed on discharge instructions, follow up and referral plans. Demonstrated understanding of instructions, follow-up care, 16:29 Patient left the ED. cm10 Signatures: Laisha Weaver, SHREYA SÁNCHEZ-Judith Wright rg4 Nena Méndez, RN RN cm10
[2023-06-19 16:34] VITALS: BP 113/87; TEMP 97.3; O2SAT 100
== END 2023-06-19 16:29 | disposition home or self-care (01) ==
LOC: ER 16:18
DX: U07.1 COVID-19 (principal)
CPT/HCPCS: 99282

== ENCOUNTER → 2023-08-23 | Emergency (ER) | payer OTHER ==
[~2023-08-23] MED LIST: KETOROLAC 30 MG/ML INJ ONE; METOCLOPRAMIDE 10 MG/2mL INJ ONE; NA CHLORIDE 0.9% 1,000 ML ONE; NA CHLORIDE 0.9% 50 ML ONE; dexAMETHasone 10 MG/ML VIAL ONE
--- OUTSIDE RECORDS SUMMARY | 2023-08-23 08:18 | XMS REPORT | Continuity of Care Document ---
Author Name Unknown Address [address] [facility] [place] [address] [facility] thconnect Address [address] [facility] [address] [place] [address] Care Team Providers Care Wood Flour Miller Name Role Phone RAMEZ DOWNS Primary Care Physician Unavailab REBEL Alba Attending Clinician Unavailab Octav[facility] Attending Clinician Un available Unknown, Attending Attending Clinician Unavailab GARRETT Beaver Attending Clinician Unavailable Garrett Delong MD Attending Clinician [phone] Doctor Unassigned, [place] Attending Clinician U Margaret Farrell Attending Clinician [phone] MARGARET HAGAN Attending Clinician Unavailable Radiology Attending Clinician Unavailable RADIOLOGY Attending Clinician Unavailable Payers Payer Name Policy Type Policy Number Effective Date Expirati on Date Source [facility] ANGELLA DILL COPAY FOCUS 9 [id number] 2023 00:00:00 Problems Condition Name Condition Details Condition Category Status Onset Date Resolution Date Last Treatment Date Treating Clinician Comments Source Right knee pain Right knee pain Disease Active 2014-08 00:00: 00 [facility] Right knee pain Right knee pain Disease Active 2014-08 00:00: 00 [facility] Migraines Migraines Disease Active 04-12 00:00: 00 [facility] Allergies, Adverse Reactions, Alerts Allergy Name Allergy Type Status Severity Reaction(s) Onset Date Inactive Date Treating Clinician Comments Source NO KNOWN ALLERGIE S Drug Class Active [facility] Social History Social Habit Start Date Stop Date Quantity Comments Source Exposure to SARS-CoV-2 (event) 2022-07-21 00:00:00 2022-07-31 10:45:00 Not sure [facility] Tobacco use and exposure 2022-07-25 00:00:00 2022-07-25 00:00:00 Smokeless tobacco non-user [facility] Tobacco Comment 2022-07-25 00:00:00 2022-07-25 00:00:00 Minor [facility] Sex Assigned At 2000 00:00:00 2000 00:00:00 [facility] Smoking Status Start Date Stop Date Source Never smoked tobacco [facility] Medications Ordered Medication Name Filled Medication Name Start Date Stop Date Current Medication? Ordering Clinician Indication Dosage Frequency Signature (SIG) Comments Components Source IBUPROFEN ORAL 12-12 14:04: 23 Yes Take by mouth. [facility] IBUPROFEN ORAL 12-12 14:04: 23 Yes Take by mouth. [facility] IBUPROFEN ORAL 12-12 14:04: 23 Yes Take by mouth. [facility] IBUPROFEN ORAL 12-12 14:04: 23 Yes Take by mouth. [facility] IBUPROFEN ORAL 12-12 14:04: 23 Yes Take by mouth. [facility] albuterol (PROVENTIL) 2.5 mg /3 mL (0.083 %) nebulizer solution 04-29 00:00: 00 Yes [facility] albuterol (PROVENTIL) 2.5 mg /3 mL (0.083 %) nebulizer solution 04-29 00:00: 00 Yes [facility] albuterol (PROVENTIL) 2.5 mg /3 mL (0.083 %) nebulizer solution 04-29 00:00: 00 Yes [facility] albuterol (PROVENTIL) 2.5 mg /3 mL (0.083 %) nebulizer solution 04-29 00:00: 00 Yes [facility] 2.5 mg /3 mL (0.083 %) nebulizer solution 04-29 00:00: 00 Yes [facility] rizatriptan (MAXALT) 10 mg tablet 04-12 00:00: 00 Yes [id number] 10mg Take 1 Tab by mouth as needed for Migraine. May repeat in 2 hours if needed [facility] amitriptyli ne (ELAVIL) 10 mg tablet 04-12 00:00: 00 Yes [id number] 10mg Take 1 Tab by mouth at bedtime. [facility] rizatriptan (MAXALT) 10 mg tablet 04-12 00:00: 00 Yes [id number] 10mg Take 1 Tab by mouth as needed for Migraine. May repeat in 2 hours if needed [facility] amitriptyli ne (ELAVIL) 10 mg tablet 04-12 00:00: 00 Yes [id number] 10mg Take 1 Tab by mouth at bedtime. [facility] rizatriptan (MAXALT) 10 mg tablet 04-12 00:00: 00 Yes [id number] 10mg Take 1 Tab by mouth as needed for Migraine. May repeat in 2 hours if needed [facility] amitriptyli ne (ELAVIL) 10 mg tablet 04-12 00:00: 00 Yes [id number] 10mg Take 1 Tab by mouth at bedtime. [facility] rizatriptan (MAXALT) 10 mg tablet 04-12 00:00: 00 Yes [id number] 10mg Take 1 Tab by mouth as needed for Migraine. May repeat in 2 hours if needed [facility] amitriptyli ne (ELAVIL) 10 mg tablet 04-12 00:00: 00 Yes [id number] 10mg Take 1 Tab by mouth at bedtime. [facility] rizatriptan (MAXALT) 10 mg tablet 04-12 00:00: 00 Yes [id number] 10mg Take 1 Tab by mouth as needed for Migraine. May repeat in 2 hours if needed [facility] amitriptyli ne (ELAVIL) 10 mg tablet 04-12 00:00: 00 Yes [id number] 10mg Take 1 Tab by mouth at bedtime. [facility] Vital Signs Vital Name Observation Time Observation Value Comments S eleanor Systolic blood pressure 2022-07-31 16:58:00 113 mm[Hg] [facility] Diastolic blood pressure 2022-07-31 16:58:00 78 mm[Hg] [facility] Heart rate 2022-07-31 16:58:00 80 /min [facility] Body temperature 2022-07-31 16:58:00 36.67 Adrianna [facility] Respiratory rate 2022-07-31 16:58:00 16 /min [facility] Body height 2022-07-31 16:58:00 185.4 cm [facility] Body weight 2022-07-31 16:58:00 61.689 kg [facility] BMI 2022-07-31 16:58:00 17.94 kg/m2 [facility] Oxygen saturation in Arterial blood by Pulse oximetry 2022-07-31 16:58:00 98 /min [facility] Systolic blood pressure 2022-07-25 21:36:00 126 mm[Hg] [facility] Diastolic blood pressure 2022-07-25 21:36:00 83 mm[Hg] [facility] Heart rate 2022-07-25 21:36:00 70 /min [facility] Body temperature 2022-07-25 21:36:00 36.78 Adrianna [facility] Respiratory rate 2022-07-25 21:36:00 16 /min [facility] Body height 2022-07-25 21:36:00 185.4 cm [facility] Body weight 2022-07-25 21:36:00 63.64 kg [facility] BMI 2022-07-25 21:36:00 18.51 kg/m2 [facility] Oxygen saturation in Arterial blood by Pulse oximetry 2022-07-25 21:36:00 98 /min [facility] Systolic blood pressure 2021-05-31 19:06:00 101 mm[Hg] [facility] Diastolic blood pressure 2021-05-31 19:06:00 59 mm[Hg] [facility] Body weight 2021-05-31 19:06:00 64.156 kg [facility] Procedures Procedure Date / Time Performed Performing Clinicia n Source TDAP VACCINE, >11 YRS, IM 2022-07-25 21:41:01 Garrett Delong [facility] ASSIGNMENT OF BENEFITS 2022-07-25 21:22:38 Docto r Unassigned, [place] [facility] Encounters Start Date/Time End Date/Time Encounter Type Admission Type Attending [facility] Care Facility Care Department Encounter ID Source 2023-08-30 16:00:00 2023-08-30 16:00:00 Outpatient REBEL BROOKE [id number] Alena Sinclair 2022-07-31 11:00:00 2022-07-31 11:20:00 Nurse Visit Nurse, Octaviano [facility] Unknown, Attending [facility] [id number] [facility] 2022-07-31 11:00:00 2022-07-31 11:00:00 Outpatient GARRETT CHAKRABORTY [facility] [id number] [facility] 2022-07-25 15:20:00 2022-07-25 16:04:46 Outpatient GARRETT CHAKRABORTY [facility] [id number] [facility] 2022-07-25 15:20:00 2022-07-25 16:04:46 Urgent Care Garrett Delong Unknown, Attending [facility] [id number] [facility] 2022-07-25 00:00:00 2022-07-25 00:00:00 Letter (Out) Garrett Delong [facility] [id number] [facility] 2022-07-25 00:00:00 2022-07-25 00:00:00 Orders Only Doctor Unassigned, [place] [facility] [id number] [facility] 2021-05-31 13:55:56 2021-05-31 14:25:56 Office Visit Efren Margaret S [facility] [id number] [facility] 2021-05-31 14:15:00 2021-05-31 14:15:00 Outpatient R MARGARET HAGAN [facility] [id number] [facility] 2021-05-26 17:00:00 2021-05-26 23:59:00 Hospital Encounter Radiology [facility] [id number] [facility] 2021-05-26 00:00:00 2021-05-26 00:00:00 Outpatient R RADIOLOGY [facility] [id number] [facility] 2021-05-26 00:00:00 2021-05-26 00:00:00 Orders Only Doctor Unassigned, [place] [facility] [id number] [facility]
--- NOTE | 2023-08-23 09:36 | ER ---
Nurse's Notes [facility] Name: Dae Watters Jr Age: 23 yrs Sex: Male : 2000 Arrival Date: 08/23/2023 Time: 08:16 Bed 18 Private MD: Diagnosis: Migraine, unspecified, not intractable, without status migrainosus Presentation: 08/23 08:30 Chief complaint: Patient states: Headache x 3 days, sensitivity to light and sound, has ph tried Tylenol w/ no relief, reports hx of migraines as a child but has not had one in many years, denies vomiting. Coronavirus screen: Vaccine status: Patient reports receiving the 1st dose of the Covid vaccine. Ebola Screen: No symptoms or risks identified at this time. Initial Sepsis Screen: Does the patient meet any 2 criteria? No. Patient's initial sepsis screen is negative. Does the patient have a suspected source of infection? No. Patient's initial sepsis screen is negative. Risk Assessment: Do you want to hurt yourself or someone else? Patient reports no desire to harm self or others. Onset of symptoms was August 23, 2023. 08:30 Method Of Arrival: Ambulatory 08:30 Acuity: DANIELA 3 Triage Assessment: 08:32 Headache History: The patient has had previous headaches and this one is similar to ph previous episodes. General: Appears in no apparent distress. Behavior is calm, cooperative, appropriate for age, Denies fever, feeling ill. Pain: Complains of pain in forehead, right restorationism and left restorationism Pain currently is 8 out of 10 on a pain scale. Pain began 2-3 days ago. Also complains of light and sound sensitivity. Neuro: Level of Consciousness is awake, alert, obeys commands, Oriented to person, place, time, situation, Reports headache Denies weakness blurred vision dizziness. Cardiovascular: Capillary refill < 3 seconds in bilateral fingers Patient's skin is warm and dry. Respiratory: Airway is patent Respiratory effort is even, unlabored. GI: Patient currently denies pain, vomiting. Derm: Skin is pink, warm \T\ dry. Historical: - Allergies: 08:32 No Known Allergies; ph - PMHx: 08:32 Asthma; Migraine; ph - PSHx: 08:32 Appendectomy; ph - Immunization history:: Adult Immunizations unknown. - Social history:: Smoking status: Reported history of juuling and/or vaping. - Family history:: not pertinent. - Hospitalizations: : No recent hospitalization is reported. Screenin:33 [facility] ED Fall Risk Assessment (Adult) History of falling in the last 3 months, ph including since admission No falls in past 3 months (0 pts) Score/Fall Risk Level 0 - 2 = Low Risk Oriented to surroundings, Maintained a safe environment, Provided non-skid footwear, Hourly rounding (assess needs \T\ fall precautionary measures) done. Abuse screen: Denies threats or abuse. Denies injuries from another. Nutritional screening: No deficits noted. Tuberculosis screening: No symptoms or risk factors identified. Assessment: 09:00 General: SEE TRIAGE ASSESSMENT. ph 09:49 Reassessment: Patient appears in no apparent distress at this time. Patient and/or ph family updated on plan of care and expected duration. Pain level reassessed. Patient is alert, oriented x 3, equal unlabored respirations, skin warm/dry/pink. Patient denies pain at this time. Patient states feeling better. Patient states symptoms have improved. Vital Signs: 08:30 BP 118 / 77; Pulse 81; Resp 18; Temp 97.5; Pulse Ox 100% on R/A; Weight 61.23 kg; ph Height 6 ft. 1 in. ; Pain 8/10; 09:49 BP 112 / 72; Pulse 79; Resp 18; Temp 97.9; Pulse Ox 98% on R/A; ph 08:30 Body Mass Index 17.81 (61.23 kg, 185.42 cm) ph 08:30 Pain Scale: Adult ph Suraj Coma Score: 09:35 Eye Response: spontaneous(4). Motor Response: obeys commands(6). Verbal Response: rn oriented(5). Total: 15. ED Course: 08:19 Patient arrived in ED. mg5 08:21 Agapito Haque MD is Attending Physician. rn 08:30 Mavis Galo RN is Primary Nurse. ph 08:32 Triage completed. ph 08:34 Patient has correct armband on for positive identification. Bed in low position. Call light in reach. Side rails up X 1. Pulse ox on. NIBP on. Door closed. Noise minimized. Lights dimmed. 08:34 Arm band placed on Patient placed in an exam room, on a stretcher. ph 08:42 Inserted saline lock: 22 gauge in right antecubital area, using aseptic technique. ds4 09:49 No provider procedures requiring assistance completed. IV discontinued, intact, ph bleeding controlled, No redness/swelling at site. Pressure dressing applied. 09:50 Provided Education on: Follow up w/ PCP. ph Administered Medications: 08:51 Drug: NS 0.9% IV 1000 ml IV at 1000 ml once Route: IV; Rate: 1000 ml; Site: right ph antecubital; 09:49 Follow up: Response: No adverse reaction; IV Status: Completed infusion; IV Intake: ph 1000ml 08:51 Drug: metoCLOPramide IVP 10 mg IVP once; over 1 to 2 minutes Route: IVP; Site: right ph antecubital; 09:48 Follow up: Response: No adverse reaction; Pain is decreased ph 08:51 Drug: Decadron - Dexamethasone IVP 10 mg IVP once Route: IVP; Site: right antecubital; ph 09:48 Follow up: Response: No adverse reaction ph 08:51 Drug: Ketorolac IVP 30 mg IVP once Route: IVP; Site: right antecubital; ph 09:48 Follow up: Response: No adverse reaction; Pain is decreased ph Medication: 08:33 VIS not applicable for this client. ph Intake: 09:49 IV: 1000ml; Total: 1000ml. ph Outcome: 09:36 Discharge ordered by . rn 09:50 Discharged to home ambulatory, ph 09:50 Condition: good 09:50 Discharge instructions given to patient, Instructed on discharge instructions, follow up and referral plans. Demonstrated understanding of instructions, follow-up care, 09:50 Patient left the ED. ph Signatures: Agapito Haque MD MD rn Swanson, Donovan ds4 Mavis Galo RN RN ph [place], [place] mg5
--- NOTE | 2023-08-23 09:37 | EDPHYS ---
Physician Documentation [facility] Name: Dae Watters Jr Age: 23 yrs Sex: Male : 2000 Arrival Date: 08/23/2023 Time: 08:16 Bed 18 Private MD: ED Physician Agapito Haque HPI: 08/23 09:12 This 23 yrs old Black Male presents to ER via Ambulatory with complaints of Headache. rn 09:12 The patient complains of pain to the top of head and forehead. The patient describes rn the headache as aching. Onset: The symptoms/episode began/occurred 2 day(s) ago. Associated signs and symptoms: Pertinent positives: This patient does not have any pertinent positive signs or symptoms associated with a headache. Pertinent negatives: altered mental status, fever, neck stiffness, vision changes, vision loss. Severity of symptoms: At its worst the pain was moderate, "similar to past headaches", in the emergency department the pain is unchanged. The symptoms are alleviated by nothing. the symptoms are aggravated by lights, noise. The patient has experienced similar episodes in the past. Patient reports headache that began 2 days ago. Identical to previous migraine headaches. Has had headache workup in the past that did not reveal any other diagnosis. No fever or chills. No head injury or trauma. Does not radiate. No focal neurological deficits.. Historical: - Allergies: 08:32 No Known Allergies; ph - PMHx: 08:32 Asthma; Migraine; ph - PSHx: 08:32 Appendectomy; ph - Immunization history:: Adult Immunizations unknown. - Social history:: Smoking status: Reported history of juuling and/or vaping. - Family history:: not pertinent. - Hospitalizations: : No recent hospitalization is reported. ROS: 09:12 Constitutional: Negative for fever, chills, and weight loss, Eyes: Negative for injury, rn pain, redness, and discharge, Neck: Negative for injury, pain, and swelling, Cardiovascular: Negative for chest pain, palpitations, and edema, Respiratory: Negative for shortness of breath, cough, wheezing, and pleuritic chest pain, Abdomen/GI: Negative for abdominal pain, nausea, vomiting, diarrhea, and constipation, Back: Negative for injury and pain, MS/Extremity: Negative for injury and deformity, Skin: Negative for injury, rash, and discoloration, Neuro: Positive for headache Exam: 09:12 Constitutional: This is a well developed, well nourished patient who is awake, alert, rn and in no acute distress. Head/Face: Normocephalic, atraumatic. Eyes: Pupils equal round and reactive to light, extra-ocular motions intact. Cardiovascular: Regular rate and rhythm. No pulse deficits. Skin: Warm, dry with normal turgor. Normal color with no rashes, no lesions, and no evidence of cellulitis. MS/ Extremity: Pulses equal, no cyanosis. Neurovascular intact. Full, normal range of motion. Equal circumference. Neuro: Awake and alert, GCS 15, oriented to person, place, time, and situation. Cranial nerves II-XII grossly intact. Motor strength 5/5 in all extremities. Sensory grossly intact. Cerebellar exam normal. Vital Signs: 08:30 BP 118 / 77; Pulse 81; Resp 18; Temp 97.5; Pulse Ox 100% on R/A; Weight 61.23 kg; ph Height 6 ft. 1 in. ; Pain 8/10; 09:49 BP 112 / 72; Pulse 79; Resp 18; Temp 97.9; Pulse Ox 98% on R/A; ph 08:30 Body Mass Index 17.81 (61.23 kg, 185.42 cm) ph 08:30 Pain Scale: Adult ph Suraj Coma Score: 09:35 Eye Response: spontaneous(4). Motor Response: obeys commands(6). Verbal Response: rn oriented(5). Total: 15. MDM: 08:22 Patient medically screened. rn 09:35 Differential diagnosis: migraine, tension headache, vasomotor headache. Data reviewed: rn vital signs, nurses notes, old medical records, and as a result, I will discharge patient. Care significantly affected by the following chronic conditions: Migraines. Counseling: I had a detailed discussion with the patient and/or guardian regarding the historical points, exam findings, and any diagnostic results supporting the discharge/admit diagnosis, the need for outpatient follow up, to return to the emergency department if symptoms worsen or persist or if there are any questions or concerns that arise at home. Special discussion: I discussed with the patient/guardian in detail that at this point there is no indication for admission to the hospital. It is understood, however, that if the symptoms persist or worsen the patient needs to return immediately for re-evaluation. Based on the history and exam findings, there is no indication for further emergent testing or inpatient evaluation. I discussed with the patient/guardian the need to see the neurologist for further evaluation of the symptoms. 08/23 08:33 Order name: IV Start; Complete Time: 08:42 rn Administered Medications: 08:51 Drug: NS 0.9% IV 1000 ml IV at 1000 ml once Route: IV; Rate: 1000 ml; Site: right ph antecubital; 09:49 Follow up: Response: No adverse reaction; IV Status: Completed infusion; IV Intake: ph 1000ml 08:51 Drug: metoCLOPramide IVP 10 mg IVP once; over 1 to 2 minutes Route: IVP; Site: right ph antecubital; 09:48 Follow up: Response: No adverse reaction; Pain is decreased ph 08:51 Drug: Decadron - Dexamethasone IVP 10 mg IVP once Route: IVP; Site: right antecubital; ph 09:48 Follow up: Response: No adverse reaction ph 08:51 Drug: Ketorolac IVP 30 mg IVP once Route: IVP; Site: right antecubital; ph 09:48 Follow up: Response: No adverse reaction; Pain is decreased ph Disposition Summary: 08/23/23 09:36 Discharge Ordered Notes: Location: Home rn Problem: an acute exacerbation rn Symptoms: have improved rn Condition: Stable rn Diagnosis - Migraine, unspecified, not intractable, without status migrainosus rn Followup: rn - With: Private Physician - When: As needed - Reason: Recheck today's complaints, Re-evaluation by your physician Discharge Instructions: - Discharge Summary Sheet rn - Migraine Headache rn Forms: - Medication Reconciliation Form rn - Thank You Letter 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
[2023-08-23 13:34] VITALS: BP 112/72; TEMP 97.9; O2SAT 98
== END ==
LOC: ER 08:16
DX: G43.909 Migraine, unspecified, not intractable, without status migrainosus (principal)
CPT/HCPCS: 96361; 96375; 96374; 99284; J2765; J1100; J7030

== ENCOUNTER 2024-05-15 17:33 | Emergency (ER) | payer OTHER ==
--- OUTSIDE RECORDS SUMMARY | 2024-05-15 17:36 | XMS REPORT | Continuity of Care Document ---
Author Name Unknown Address [address] [place] [address] [facility] Address 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 Name Role Phone HIMANSHU RAMEZ Primary Care Physician Unavailab JUANJO Fields Attending Clinician Unavailable JUANJO GIBBS Attending Clinician Unavailable REBEL BROOKE Attending Clinician Unavailab le LAB90 Attending Clinician Unavailable MD RAVEN Attending Clinician Unavailab RACHID Cannon Attending Clinician Unavailable ALENA [facility] Attending Clinicia jade Unavailable Nurse, [facility] Attending Clinician Un available Unknown, Attending Attending Clinician Unavailab GARRETT Beaver Attending Clinician Unavailable Garrett Delong MD Attending Clinician [phone] Doctor Unassigned, [place] Attending Clinician U Margaret Farrell Attending Clinician [phone] MARGARET HAGAN Attending Clinician Unavailable Radiology Attending Clinician Unavailable RADIOLOGY Attending Clinician Unavailable Payers Payer Name Policy Type Policy Number Effective Date Expirati on Date Source [facility] [id number] 2023 00:00:00 [facility] ALENAMarlenePONCHO ROBERT-C COPAY FOCUS 9 [id number] 2023 00:00:00 Problems Condition Name Condition Details Condition Category Status Onset Date Resolution Date Last Treatment Date Treating Clinician Comments Source Encounter for screening for diabetes mellitus Encounter for screening for diabetes mellitus Disease Active 08-30 00:00: 00 Alena Sinclair - Externa l Malnutriti on (multi HCC) Malnutriti on (multi HCC) Disease Active 08-30 00:00: 00 Alena Rosario Externa l Malabsorpt ion (HHS-HCC) Malabsorpt ion (HHS-HCC) Disease Active 08-30 00:00: 00 Alena Sinclair - Debbiea l Unexplaine d weight loss Unexplaine d weight loss Disease Active 08-30 00:00: 00 Alena Lewisa jacek Right knee pain Right knee pain Disease Active 2014-08 00:00: 00 [facility] Right knee pain Right knee pain Disease Active 2014-08 00:00: 00 [facility] Migraines Migraines Disease Active 04-12 00:00: 00 [facility] Allergies, Adverse Reactions, Alerts Allergy Name Allergy Type Status Severity Reaction(s) Onset Date Inactive Date Treating Clinician Comments Source NO KNOWN ALLERGIE S Drug Class Active [facility] Social History Social Habit Start Date Stop Date Quantity Comments Source [facility] use and exposure 2023-08-30 00:00:00 2023-08-30 00:00:00 Smokeless tobacco non-user Alena Sinclair - External Exposure to SARS-CoV-2 (event) 2022-07-21 00:00:00 2022-07-31 10:45:00 Not sure [facility] History of Social function 2022-07-31 00:00:00 2022-07-31 00:00:00 [facility] Tobacco Comment 2022-07-25 00:00:00 2022-07-25 00:00:00 Minor [facility] Sex Assigned At 2000 00:00:00 2000 00:00:00 Alena Sinclair - External Smoking Status Start Date Stop Date Source Never smoked tobacco Alena Rosario External Medications Ordered Medication Name Filled Medication Name Start Date Stop Date Current Medication? Ordering Clinician Indication Dosage Frequency Signature (SIG) Comments Components Source ondansetron (ZOFRAN-ODT ) disintegrat ing tablet 4 mg 02-15 22:45: 00 02-16 10:44 :00 Yes 4mg [facility] IBUPROFEN ORAL 02-15 16:37: 20 02-15 00:00 :00 No Take by mouth. [facility] ibuprofen 600 mg tablet 02-15 00:00: 00 Yes [id number] 600mg Take 1 tablet by mouth every 6 (six) hours as needed for Pain (scale 4-6) for up to 30 doses. [facility] IBUPROFEN ORAL 12-12 14:04: 23 Yes Take by mouth. [facility] albuterol (PROVENTIL) 2.5 mg /3 mL (0.083 %) nebulizer solution 04-29 00:00: 00 Yes [facility] rizatriptan (MAXALT) 10 mg tablet 04-12 00:00: 00 Yes [id number] 10mg Take 1 Tab by mouth as needed for Migraine. May repeat in 2 hours if needed [facility] amitriptyli ne (ELAVIL) 10 mg tablet 04-12 00:00: 00 Yes [id number] 10mg Take 1 Tab by mouth at bedtime. [facility] Immunizations Ordered Immunization Name Filled Immunization Name Date Status Comments Source TDAP 2022-07-25 00:00:00 Completed [facility] TDAP 2022-07-25 00:00:00 Completed [facility] DTAP 2005-05-18 00:00:00 Completed [facility] HEPATITIS A 2005-05-18 00:00:00 Completed [facility] Meningococcal Vaccine- Conjugate(Menactra) Unknown Completed Alena lane - Ajit Bexsero (Meningococcal Group B) Unknown Completed Alena Rosario External MMR- Measles, Mumps, Rubella Unknown Completed Alena Penaybol d - External MMR- Measles, Mumps, Rubella Unknown Completed Alena Barrazaol d - External Pneumococcal Vaccine, Conjugate 7 Unknown Completed Alena Seybold - External IPV- Inactivated Polio Vaccine Unknown Completed Alena Seybold - External IPV- Inactivated Polio Vaccine Unknown Completed Alena Penaybold - External IPV- Inactivated Polio Vaccine Unknown Completed Alena Penaybold - External IPV- Inactivated Polio Vaccine Unknown Completed Alena Seybold - External Varicella Vaccine Unknown Completed lsey Seybold - External Varicella Vaccine Unknown Completed lsey Seybold - External Influenza, Seasonal, Injectable Unknown Completed Alena Seybold - External TDAP Unknown Completed [facility] DTaP Unknown Completed Alena Shearer bold - External HEPATITIS A- PEDI/ADOL Unknown Completed Alena Seybold - External Tdap- (Boostrix, Adacel) Unknown Completed Alena Seybold - External HEPATITIS A- PEDI/ADOL Unknown Completed Alena Penaybold - External Tdap- (Boostrix, Adacel) Unknown Completed Alena Seybold - External DTaP Unspecified Unknown Completed Jean Marie shearer Seybold - External DTaP Unspecified Unknown Completed Jean Marie penay Seybold - External DTaP Unspecified Unknown Completed Jean Marie sey Seybold - External DTaP Unspecified Unknown Completed Jean Marie sey Seybold - External DTaP Unspecified Unknown Completed Jean Marie shearer Seybold - External Influenza Virus Vaccine, No Preserv, age 6 months and up Unknown Completed Alena Penaybold - External Influenza Virus Vaccine, No Preserv, age 6 months and up Unknown Completed Alena Penaybold - External Influenza Virus Vaccine, No Preserv, age 6 months and up Unknown Completed Alena Seybold - External Influenza Virus Vaccine, No Preserv, age 6 months and up Unknown Completed Alena Seybold - External Influenza Virus Vaccine, No Preserv, age 6 months and up Unknown Completed Alena Seybold - External Influenza, Seasonal, Injectable, Preservative Free Unknown Completed Alena Penaleon bold - External Hepatitis B, Adolescent Or Pediatric Unknown Completed Alena Seybold - External Hepatitis B, Adolescent Or Pediatric Unknown Completed Alena Seybold - External Hepatitis B, Adolescent Or Pediatric Unknown Completed Alena Seybold - External HIB- Haemophilus Influenzae Type B Unknown Completed Alena Penaleon bold - External HIB- Haemophilus Influenzae Type B Unknown Completed Alena Shearer bold - External HPV 9 (Human Papillomavirus) Unknown Completed Alena Penabiancaming ld - External HPV 9 (Human Papillomavirus) Unknown Completed Alena Hoskins ld - External Meningococcal Vaccine- Conjugate(Menactra) Unknown Completed Alena S eybold - External Vital Signs Vital Name Observation Time Observation Value Comments Kash webster Systolic blood pressure 2024-02-16 20:22:00 117 mm[Hg] [facility] Diastolic blood pressure 2024-02-16 20:22:00 73 mm[Hg] [facility] Heart rate 2024-02-16 20:22:00 105 /min [facility] Body temperature 2024-02-16 20:22:00 37.22 Adrianna [facility] Respiratory rate 2024-02-16 20:22:00 14 /min [facility] Body height 2024-02-16 20:22:00 185.4 cm [facility] Body weight 2024-02-16 20:22:00 65.772 kg [facility] BMI 2024-02-16 20:22:00 19.13 kg/m2 [facility] Oxygen saturation in Arterial blood by Pulse oximetry 2024-02-16 20:22:00 100 /min [facility] Systolic blood pressure 2023-08-30 22:04:00 110 mm[Hg] Alena Hoskins ld - External Diastolic blood pressure 2023-08-30 22:04:00 62 mm[Hg] Alena Hoskins ld - External Heart rate 2023-08-30 22:04:00 88 /min Buffy leon Seybold - External Body temperature 2023-08-30 22:04:00 37.11 Adrianna Alena Penaybold - External Respiratory rate 2023-08-30 22:04:00 18 /min Alena Seybold - External Body height 2023-08-30 22:04:00 185.4 cm Lucrecia ey Seybold - External Body weight 2023-08-30 22:04:00 58.117 kg Lucrecia ey Seybold - External BMI 2023-08-30 22:04:00 16.90 kg/m2 Lucrecia ey Seybold - External Oxygen saturation in Arterial blood by Pulse oximetry 2023-08-30 22:04:00 99 /min Alena Hoskins ld - External Systolic blood pressure 2022-07-31 16:58:00 113 mm[Hg] [facility] Diastolic blood pressure 2022-07-31 16:58:00 78 mm[Hg] [facility] Heart rate 2022-07-31 16:58:00 80 /[facility] Body temperature 2022-07-31 16:58:00 36.67 Adrianna [facility] Respiratory rate 2022-07-31 16:58:00 16 /min [facility] Body height 2022-07-31 16:58:00 185.4 cm [facility] Body weight 2022-07-31 16:58:00 61.689 kg [facility] BMI 2022-07-31 16:58:00 17.94 kg/m2 [facility] Oxygen saturation in Arterial blood by Pulse oximetry 2022-07-31 16:58:00 98 /min [facility] Systolic blood pressure 2022-07-25 21:36:00 126 mm[Hg] [facility] Diastolic blood pressure 2022-07-25 21:36:00 83 mm[Hg] [facility] Heart rate 2022-07-25 21:36:00 70 /min [facility] Body temperature 2022-07-25 21:36:00 36.78 Adrianna [facility] Respiratory rate 2022-07-25 21:36:00 16 /min [facility] Body height 2022-07-25 21:36:00 185.4 cm [facility] Body weight 2022-07-25 21:36:00 63.64 kg [facility] BMI 2022-07-25 21:36:00 18.51 kg/m2 [facility] Oxygen saturation in Arterial blood by Pulse oximetry 2022-07-25 21:36:00 98 /min [facility] Systolic blood pressure 2021-05-31 19:06:00 101 mm[Hg] [facility] Diastolic blood pressure 2021-05-31 19:06:00 59 mm[Hg] [facility] Body weight 2021-05-31 19:06:00 64.156 kg [facility] Procedures Procedure Date / Time Performed Performing Clinicia n Source RAPID STREP SCREEN FOR GROUP A 2024-02-16 20:26:00 Juanjo Gibbs [facility] TDAP VACCINE, >11 YRS, IM 2022-07-25 21:41:01 Garrett Delong [facility] ASSIGNMENT OF BENEFITS 2022-07-25 21:22:38 Docto r Unassigned, [place] [facility] Encounters Start Date/Time End Date/Time Encounter Type Admission Type Attending [facility] Care Facility Care Department Encounter ID Source 2024-02-16 15:27:00 2024-02-16 16:44:00 Emergency X GIBBS, JUANJO MENDIOLA ERT [id number] [facility] 2024-02-16 15:27:00 2024-02-16 16:44:00 Emergency Sai Juanjo [facility] [id number] 350.1.13.10 [id number] [id number] [facility] 2023-11-12 16:30:00 2023-11-12 16:30:00 Outpatient REBEL BROOKE [id number] [facility] 2023-10-23 17:00:00 2023-10-23 17:00:00 Outpatient LAB90 ALENA FORBES [id number] [facility] 2023-10-23 00:00:00 2023-10-23 00:00:00 Outpatient REBEL BROOKE [id number] [facility] 2023-10-19 16:30:00 2023-10-19 16:30:00 Outpatient REBEL BROOKE [id number] [facility] 2023-10-19 00:00:00 2023-10-19 00:00:00 Outpatient MD ALENA ARTEAGA [id number] [facility] 2023-09-28 09:30:00 2023-09-28 09:30:00 Outpatient REBEL BROOKE [id number] [facility] 2023-09-07 14:40:00 2023-09-07 14:40:00 Outpatient RACHID VALLE [id number] [facility] 2023-09-06 11:00:00 2023-09-06 11:00:00 Outpatient REBEL BROOKE [id number] [facility] 2023-08-31 15:25:00 2023-08-31 15:25:00 Outpatient FABIAN FORBES [id number] [facility] 2023-08-31 00:00:00 2023-08-31 00:00:00 Outpatient ALENA FREDERICK [id number] [facility] 2023-08-30 16:00:00 2023-08-30 16:00:00 Outpatient REBEL BROOKE ALENA [id number] [facility] 2023-08-30 16:00:00 2023-08-30 16:00:00 Outpatient REBEL BROOKE [id number] [facility] 2023-08-30 16:00:00 2023-08-30 16:00:00 Outpatient REBEL BROOKE [id number] [facility] 2022-07-31 11:00:00 2022-07-31 11:20:00 Nurse Visit Nurse, Octaviano [facility] Unknown, Attending [facility] [id number] 350.1.13.10 4.2.7.2.686 [id number] [facility] 2022-07-31 11:00:00 2022-07-31 11:00:00 Outpatient GARRETT CHAKRABORTY [facility] [id number] [facility] 2022-07-25 15:20:00 2022-07-25 16:04:46 Outpatient GARRETT CHAKRABORTY [facility] [id number] [facility] 2022-07-25 15:20:00 2022-07-25 16:04:46 Urgent Care Garrett Delong Unknown, Attending [facility] 1.2.840.114 350.1.13.10 4.2.7.2.686 [id number] [facility] 2022-07-25 00:00:00 2022-07-25 00:00:00 Orders Only Doctor Unassigned, [place] [facility] [id number] 350.1.13.10 4.2.7.2.686 [id number] [facility] 2022-07-25 00:00:00 2022-07-25 00:00:00 [facility] (Out) [facility] 1.2.840.114 350.1.13.10 4.2.7.2.686 [id number] [facility] 2021-05-31 13:55:56 2021-05-31 14:25:56 Office Visit Margaret Hagan S [facility] [id number] 350.1.13.10 4.2.7.2.686 [id number] [facility] 2021-05-31 14:15:00 2021-05-31 14:15:00 Outpatient R MARGARET HAGAN [facility] [id number] [facility] 2021-05-26 17:00:00 2021-05-26 23:59:00 Hospital Encounter Radiology [facility] [id number] 350.1.13.10 4.2.7.2.686 [id number] [facility] 2021-05-26 00:00:00 2021-05-26 00:00:00 Outpatient R RADIOLOGY [facility] [id number] [facility] 2021-05-26 00:00:00 2021-05-26 00:00:00 Orders Only Doctor Unassigned, [place] [facility] [id number] 350.1.13.10 4.2.7.2.686 [id number] [facility] Notes Date/Time Note Provider Source 2024-02-16 16:43:59 Pt given printed and verbal discharge instructions regarding sorethroat and vomiting in adult, encouraged hydration, 1 Prescriptions provided Discussed ibuprofen and to take with food to avoid GI distress. Pt verbalized understanding of instructions, pt awake alert oriented, resp reg unlabored, skin w/d, color appropriate for race, moves all ext well,pt encouraged to follow up with pcp. Advised to seek medical attention for new/prolonged/worsening of symptoms, Symptoms improved. Awake, alert oriented, resp reg unlabored, skin w/d, pt leaving amb with steady gait, in no apparent distress, Ro Rojas RN [facility] 2024-02-16 15:22:18 Shannon Watters Jr. is a 23 year old male c/o sore throat for 3 days, states felt hot and dayquil not helping Tanya Luna RN [facility] 2023-08-30 16:06:43 Chief Complaint Patient presents with Physical Patient is not fasting Nicolasa Molina LVN [facility]
[2024-05-15] MEDS ORDERED: NA CHLORIDE 0.9% 1,000 ML ONE (18:54)
[2024-05-15 19:33] LABS: Absolute Eosinophils 0.2 K/uL (0-0.5); Absolute Lymphocytes (CBC) 1.8 K/uL (0.7-4.9); Absolute Monocytes 0.7 K/uL (0.1-1.3); Absolute Neutrophil 3.1 K/uL (1.8-8.0); Basophils % 0.6 % (0-1.3); Eosinophils % 2.9 % (0-4.4); Hematocrit 45.1 % (39.6-49.0); Hemoglobin 15.1 g/dL (13.6-17.9); Lymphocytes % 31.3 % (15.3-44.8); MCH 29.1 pg (27.0-35.0); MCHC 33.6 g/dL (32.0-36.0); MCV 86.6 fL (80-100); MPV 7.3 fL (7.6-11.3); Monocytes % 11.4 % (3.3-12.3); Neutrophils % 53.8 % (41.7-73.7); Nucleated Red Blood Cells % 0.2 % (0-0); Platelets 290 thou/uL (152-406); Red Cell Distribution Width 13.2 % (12.1-15.2)
[2024-05-15 19:40] LABS: Specific Gravity > 1.030 (1.005-1.030); Sqamous Epithelial <5 /HPF (None Seen); Urine Bacteria <20 /HPF (<20); Urine Bilirubin NEGATIVE (Negative); Urine Blood Negative (Negative); Urine Clarity Clear (Clear); Urine Color Yellow (Yellow); Urine Culture Reflex Order NOT NEEDED; Urine Glucose NEGATIVE (Negative); Urine Ketones TRACE (Negative); Urine Microscopic Reflex YN ORDER UMIC; Urine Mucus 4+ /HPF (None Seen); Urine Nitrite NEGATIVE (Negative); Urine Protein 1+ (Negative); Urine RBC <5 /HPF (None Seen); Urine Urobilinogen Normal (Normal); Urine WBC <5 /HPF (<5); Urine WBC Clump Rare /HPF (None Seen); Urine pH 5.5 (5.0-7.0)
[2024-05-15 19:41] LABS: Albumin 4.5 g/dL (3.4-5.0); Albumin/Globulin Ratio 1.1 (1.1-1.8); Anion Gap 6.4 mEq/L (5.0-15.0); Bilirubin Total 0.9 mg/dL (0.2-1.0); Potassium 3.4 mEq/L (3.5-5.1); Protein, Total 8.5 g/dL (6.4-8.2)
[2024-05-15 19:49] LABS: SARS-CoV-2 Antigen CONTROL BLUE LINE VIS/BG OK; SARS-CoV-2 Antigen Rapid Res Negative (Negative)
--- NOTE | 2024-05-15 20:20 | EDPHYS ---
Physician Documentation [facility] Name: Dae Watters Jr Age: 24 yrs Sex: Male : 2000 Arrival Date: 05/15/2024 Time: 17:33 Bed 19 Private MD: ED Physician Wilfrid Browning HPI: 05/15 18:34 This 24 yrs old Black Male presents to ER via Ambulatory with complaints of sb4 dehydration, Nausea. 18:34 Patient reports feeling dehydrated, nauseated, generally weak for about 5 days now. He sb4 does not have any other associated signs and symptoms, no cough, fever, chills, chest pain, shortness of breath. He denies any sick contacts. He denies any prior episodes of this. He denies any chronic medical issues. Historical: - Allergies: 17:42 No Known Drug Allergies; ll1 - PMHx: 17:42 Asthma; Migraine; ll1 - PSHx: 17:42 Appendectomy; ll1 - Immunization history:: Adult Immunizations up to date. - Infectious Disease History:: Denies. - Social history:: Smoking status: Patient denies any tobacco usage or history of. ROS: 18:35 Cardiovascular: Negative for chest pain, palpitations, and edema, Respiratory: Negative sb4 for shortness of breath, cough, wheezing, and pleuritic chest pain, 18:35 Constitutional: Positive for fatigue, malaise, 18:35 Abdomen/GI: Positive for nausea, 18:35 All other systems are negative, Exam: 18:35 Constitutional: This is a well developed, well nourished patient who is awake, alert, sb4 and in no acute distress. Head/Face: Normocephalic, atraumatic. ENT: Mucous membranes moist. Cardiovascular: Regular rate and rhythm with a normal S1 and S2. Respiratory: Lungs have equal breath sounds bilaterally, clear to auscultation and percussion. No rales, rhonchi or wheezes noted. No increased work of breathing, no retractions or nasal flaring. Abdomen/GI: Soft, non-tender, no distension. Skin: Warm, dry with normal turgor. Normal color with no rashes, no lesions, and no evidence of cellulitis. 18:35 Eyes: Sclera: icterus, is present, Vital Signs: 17:49 BP 123 / 86; Pulse 75; Resp 16; Temp 97.8; Pulse Ox 100% ; Weight 65.77 kg; Height 6 ll1 ft. 1 in. ; Pain 7/10; 19:23 BP 125 / 85; Pulse 69; Resp 16; Pulse Ox 100% ; Pain 0/10; dd2 20:08 BP 112 / 67; Pulse 74; Resp 16; Pulse Ox 100% ; Pain 0/10; dd2 17:49 Body Mass Index 19.13 (65.77 kg, 185.42 cm) ll1 17:49 Pain Scale: Adult ll1 19:23 Pain Scale: Adult dd2 20:08 Pain Scale: Adult dd2 MDM: 17:46 Patient medically screened. sb4 20:19 Data reviewed: vital signs, nurses notes, lab test result(s), and as a result, I will sb4 discharge patient. Counseling: I had a detailed discussion with the patient and/or guardian regarding the historical points, exam findings, and any diagnostic results supporting the discharge/admit diagnosis, lab results, the need for outpatient follow up, for definitive care, to return to the emergency department if symptoms worsen or persist or if there are any questions or concerns that arise at home. 05/15 18:06 Order name: CBC with Diff; Complete Time: 19:42 sb4 05/15 18:06 Order name: CMP; Complete Time: 19:42 sb4 05/15 18:06 Order name: Urinalysis w/ reflexes; Complete Time: 19:42 sb4 05/15 18:06 Order name: SARS RAPID; Complete Time: 19:51 sb4 05/15 18:06 Order name: Flu; Complete Time: 19:51 sb4 05/15 18:06 Order name: IV Saline Lock; Complete Time: 19:19 sb4 05/15 18:06 Order name: Labs collected and sent; Complete Time: 19:19 sb4 Administered Medications: 19:19 Drug: NS 0.9% IV 1000 ml IV at 1 bolus Per protocol; 1000 mL bolus Route: IV; Rate: 1 dd2 bolus; Site: right antecubital; 20:19 Follow up: IV Status: Completed infusion; IV Intake: 1000ml dd2 Disposition: 18:35 I was immediately available on-site in the Emergency Department for consultation in the ms3 care of the patient. Disposition Summary: 05/15/24 20:19 Discharge Ordered Notes: Location: Home sb4 Problem: new sb4 Symptoms: have improved sb4 Condition: Stable sb4 Diagnosis - Other malaise and fatigue sb4 Followup: sb4 - With: Private Physician - When: 1 week - Reason: Recheck today's complaints, Re-evaluation by your physician Discharge Instructions: - Discharge Summary Sheet sb4 - Fatigue sb4 - Dehydration, Adult, [id number] sb4 Forms: - Work release form sb4 - Patient Portal Instructions sb4 - Leadership Thank You Letter sb4 Signatures: Dispatcher [employer] EDMS Kari Golden, RN RN ll1 Wilfrid Browning DO DO ms3 Reena Reeys PARik PARik sb4 CESAR LEGER RN RN dd2 Corrections: (The following items were deleted from the chart) 18:07 18:06 CBC+H.LAB.BRZ ordered. EDMS EDMS 18:07 18:06 COMPREHENSIVE METABOLIC PANEL+C.LAB.BRZ ordered. EDMS EDMS 18:07 18:06 Urinalysis+U.LAB.BRZ ordered. EDMS EDMS 18:07 18:06 SARS-COV-2 Antigen Rapid+I.LAB.BRZ ordered. EDMS EDMS 18:07 18:06 Influenza Screen (A \T\ B)+BA.LAB.BRZ ordered. EDMS EDMS
--- NOTE | 2024-05-15 20:20 | ER ---
Nurse's Notes [facility] Name: Dae Watters Jr Age: 24 yrs Sex: Male : 2000 Arrival Date: 05/15/2024 Time: 17:33 Bed 19 [facility] MD: Diagnosis: Other malaise and fatigue Presentation: 05/15 17:49 Chief complaint: Patient states: Nausea, fatigue, no appetite for 5-6 days. Coronavirus ll1 screen: Client denies travel out of the [place] in the last 14 days. At this time, the client does not indicate any symptoms associated with coronavirus-19. Ebola Screen: Patient denies travel to an Ebola-affected area in the 21 days before illness onset. Initial Sepsis Screen: Does the patient meet any 2 criteria? No. Patient's initial sepsis screen is negative. Does the patient have a suspected source of infection? No. Patient's initial sepsis screen is negative. Risk Assessment: Do you want to hurt yourself or someone else? Patient reports no desire to harm self or others. Onset of symptoms was May 11, 2024. 17:49 Method Of Arrival: Ambulatory ll1 17:49 Acuity: DANIELA 3 ll1 Triage Assessment: 17:49 General: Appears uncomfortable, Behavior is calm, cooperative, appropriate for age. ll1 General: Reports fatigue for. GI: Reports intolerance of fluids, intolerance of food, nausea. Historical: - Allergies: 17:42 No Known Drug Allergies; ll1 - PMHx: 17:42 Asthma; Migraine; ll1 - PSHx: 17:42 Appendectomy; ll1 - Immunization history:: Adult Immunizations up to date. - Infectious Disease History:: Denies. - Social history:: Smoking status: Patient denies any tobacco usage or history of. Screenin:05 [facility] ED Fall Risk Assessment (Adult) History of falling in the last 3 months, kc6 including since admission No falls in past 3 months (0 pts) Confusion or Disorientation No (0 pts) Intoxicated or Sedated No (0 pts) Impaired Gait No (0 pts) Mobility Assist Device Used No (0 pt) Altered Elimination No (0 pt) Score/Fall Risk Level 0 - 2 = Low Risk Oriented to surroundings. Abuse screen: Denies threats or abuse. Denies injuries from another. Nutritional screening: No deficits noted. Tuberculosis screening: No symptoms or risk factors identified. Assessment: 19:15 General: Appears in no apparent distress. Behavior is calm, cooperative, appropriate dd2 for age. Pain: Denies pain. Neuro: Level of Consciousness is awake, alert, obeys commands, Oriented to person, place, time, situation, Appropriate for age. Cardiovascular: Reports fatigue, Patient's skin is warm and dry. Respiratory: Airway is patent Respiratory effort is even, unlabored, Respiratory pattern is regular, symmetrical. GI: Abdomen is flat, non-distended, Bowel sounds present X 4 quads. Abd is soft and non tender. : No signs and/or symptoms were reported regarding the genitourinary system. EENT: No deficits noted. No signs and/or symptoms were reported regarding the EENT system. Derm: No deficits noted. No signs and/or symptoms reported regarding the dermatologic system. Musculoskeletal: No deficits noted. No signs and/or symptoms reported regarding the musculoskeletal system. Vital Signs: 17:49 BP 123 / 86; Pulse 75; Resp 16; Temp 97.8; Pulse Ox 100% ; Weight 65.77 kg; Height 6 ll1 ft. 1 in. ; Pain 7/10; 19:23 BP 125 / 85; Pulse 69; Resp 16; Pulse Ox 100% ; Pain 0/10; dd2 20:08 BP 112 / 67; Pulse 74; Resp 16; Pulse Ox 100% ; Pain 0/10; dd2 17:49 Body Mass Index 19.13 (65.77 kg, 185.42 cm) ll1 17:49 Pain Scale: Adult ll1 19:23 Pain Scale: Adult dd2 20:08 Pain Scale: Adult dd2 ED Course: 17:36 Patient arrived in ED. im 17:40 Reena Reyes PA-C is PHCP. sb4 17:40 Wilfrid Browning DO is Attending Physician. sb4 17:42 Arm band placed on. ll1 17:50 Triage completed. ll1 18:37 Rosalba Mullen RN is Primary Nurse. kc6 19:05 Patient has correct armband on for positive identification. Bed in low position. Call kc6 light in reach. Side rails up X 1. Report given to Melonie Lester RN. Pulse ox on. NIBP on. Door closed. Noise minimized. Lights dimmed. Pillow given. 19:07 MELONIE LESTER, RN is Primary Nurse. dd2 19:15 Provided Education on: call light, labs, wait times. dd2 19:15 No provider procedures requiring assistance completed. dd2 19:19 Flu Sent. dd2 19:19 SARS RAPID Sent. dd2 19:19 CBC with Diff Sent. dd2 19:19 CMP Sent. dd2 19:19 Urinalysis w/ reflexes Sent. dd2 19:20 Inserted saline lock: 20 gauge in right antecubital area, using aseptic technique. dd2 Blood collected. Flushed with 10 mL NS. 19:20 Initial lab(s) drawn, by nc, sent to lab. Urine collected: clean catch specimen, carlos a dd2 colored, COVID swab sent to lab. Flu and/or RSV swab sent to lab. 20:26 IV discontinued, intact, bleeding controlled, No redness/swelling at site. Pressure dd2 dressing applied. Administered Medications: 19:19 Drug: NS 0.9% IV 1000 ml IV at 1 bolus Per protocol; 1000 mL bolus Route: IV; Rate: 1 dd2 bolus; Site: right antecubital; 20:19 Follow up: IV Status: Completed infusion; IV Intake: 1000ml dd2 Medication: 19:15 VIS not applicable for this client. dd2 Intake: 20:19 IV: 1000ml; Total: 1000ml. dd2 Outcome: 20:19 Discharge ordered by . sb4 20:26 Discharged to home ambulatory, dd2 20:26 Condition: stable 20:26 Discharge instructions given to patient, Instructed on discharge instructions, follow up and referral plans. Demonstrated understanding of instructions, follow-up care, 20:35 Patient left the ED. dd2 Signatures: Kari Golden, RN RN ll1 Rosalba Mullen RN RN kc6 Reena Reyes, PA-C PA-C sb4 Tali Avitia DIANA, RN RN dd2 Corrections: (The following items were deleted from the chart) 17:51 17:49 BP 123 / 86; Pulse 75bpm; Resp 16bpm; Pulse Ox 100%; Temp 98F; 65.77 kg; Height 6 ll1 ft. 1 in.; BMI: 19.1; Pain 7/10, Adult; ll1
[2024-05-16 09:05] VITALS: O2SAT 100
[2024-05-16 09:07] VITALS: TEMP 97.8
[2024-05-16 09:09] VITALS: BP 112/67
== END 2024-05-15 20:35 | disposition home or self-care (01) ==
LOC: ER 17:33
DX: R53.81 Other malaise (principal); R53.83 Other fatigue; R11.0 Nausea; Z11.52 Encounter for screening for COVID-19
CPT/HCPCS: 85025; 81001; 36415; 80053; 87804 ×2; 96360; 99284; 87811; J7030